=== PATIENT | female | born 1940 | race Caucasian/White ===

== ENCOUNTER 2018-11-01 22:33 | Emergency (ER) | payer OTHER | END 2018-11-02 01:58 | disposition home or self-care (01) | LOC: JER 22:33 | DX: I10 Essential (primary) hypertension (principal); E11.9 Type 2 diabetes mellitus without complications; C50.919 Malignant neoplasm of unspecified site of unspecified female breast; Z86.73 Personal history of transient ischemic attack (TIA), and cerebral infarction without residual deficits ==

== ENCOUNTER 2018-11-03 12:21 | Inpatient (IN) | payer OTHER ==
--- NOTE | 2018-11-03 12:41 | PDOC ---
History of Present Illness - General Stated Complaint: Blood Pressure Problem Time Seen by Provider: 11/03/18 12:28 History Source: Patient Exam Limitations: No Limitations - History of Present Illness Initial Comments: 11/03/18 12:36 78YOF with h/o HTN (valsartan bid and carvedilol bid and states adherent with all medications), TIA (on atorvastatin), NIDDM (on Januvia), and prior left breast cancer (on tamoxifen) who was BIBEMS as coordinated by Dr. Gordon's office where she was reportedly being seen for chest heaviness and SOB in the setting of BP 210/110 in their office. The patient states her only symptom at this time is mild lightheadedness and tiredness, and she believes this is because she has not eaten anything today. Her PCP is Dr. Gordon. On conversation with Dr. Gordon, he states that the patient was complaining of chest pain and SOB, and she took an extra pill of carvedilol and valsartan in the office because of the high blood pressure measured in the office. Per his request the patient needs to be admitted to Dr. Velázquez/Jonny's service. The patient denies VENCES, numbness, tingling, weakness focally, vision change, chest pain, SOB, abdominal pain, back pain, vertigo, or any other symptoms. Past History - Past Medical History Allergies/Adverse Reactions: Allergies Allergy/AdvReac Type Severity Reaction Status Date / Time No Known Allergies Allergy Verified 11/03/18 12:38 Home Medications: Ambulatory Orders Atorvastatin Ca [Lipitor] 10 mg PO HS tablet 12/04/15 Sitagliptin Phosphate [Januvia -] 25 mg PO DAILY@0700 tab 12/04/15 Amlodipine Besylate [Norvasc -] 10 mg PO DAILY #30 tablet 12/09/15 Carvedilol [Coreg -] 25 mg PO BID #60 tablet 12/09/15 Valsartan [Diovan] 160 mg PO BID #60 tablet 12/09/15 Oxycodone HCl/Acetaminophen [Percocet 5-325 mg Tablet] 1 - 2 tab PO Q6H PRN #30 tab MDD 6 01/07/16 Anemia: No Asthma: No Cancer: Yes (Left Breast) Cardiac Disorders: No CVA: Yes (TIA) COPD: No CHF: No Dementia: No Diabetes: Yes (Diet controlled-TAKES JANUVIA PRN) GI Disorders: No Disorders: No HTN: Yes Hypercholesterolemia: No Kidney Stones: Yes Liver Disease: No Seizures: No Thyroid Disease: No - Surgical History Abdominal Surgery: No Appendectomy: No Cardiac Surgery: Yes Cholecystectomy: No Lung Surgery: No Neurologic Surgery: No Orthopedic Surgery: No - Suicide/Smoking/Psychosocial Hx Smoking Status: Yes Smoking History: Unknown if ever smoked Have you smoked in the past 12 months: Yes Number of Cigarettes Smoked Daily: 1 'Breaking Loose' booklet given: 12/06/15 Hx Alcohol Use: No Drug/Substance Use Hx: No Substance Use Type: None Hx Substance Use Treatment: No Cardiac Specific PMH - Complaint Specific PMHX Pacemaker: No Review of Systems - Review of Systems Able to Perform ROS?: Yes Comments:: 11/03/18 12:58 GEN: tiredness, generalized weakness, no fever, chills, malaise, or weight change HEENT: no ear pain, sore throat, vision change, or eye pain CV: lightheadedness, no chest pain, palpitations, syncope, or edema RESP: no cough, wheezing, or SOB GI: no abdominal pain, nausea, vomiting, diarrhea, constipation, or white/black/ bloody stool : no dysuria, hematuria, incontinence, retention, bleeding, or discharge MSK: no neck/back pain, muscle weakness/pain, or joint swelling/pain NEURO: no headache, seizure, vertigo, numbness, tingling, or focal weakness PSYCH: no substance use, no behavior change SKIN: no jaundice, no rash ROS otherwise negative except as noted in HPI *Physical Exam - Vital Signs Last Vital Signs Temp Pulse Resp BP Pulse Ox 97.8 F 68 18 172/85 H 96 11/04/18 06:00 11/04/18 14:00 11/04/18 14:00 11/04/18 14:00 11/03/18 21:00 11/03/18 12:59 Initial Vital Signs Temp Pulse Resp BP Pulse Ox 97.3 F L 78 16 158/55 L 100 11/03/18 12:24 11/03/18 12:24 11/03/18 12:24 11/03/18 12:24 11/03/18 12:24 - Physical Exam Comments: 11/03/18 12:59 GENERAL: nontoxic, well-appearing elderly female who is pleasant and smiling and in no distress, speaking full sentences in Spanish, grandson and at bedside translate for her, A/Ox4, answers questions appropriately HEENT: PERRLA, EOMI, moist mucous membranes NECK/BACK: no midline ttp, no spinal stepoff or deformity, no hematoma, full ROM , neck supple CARDIOVASCULAR: regular rate/rhythm, normal S1S2, no MGR, strong peripheral pulses, capillary refill <2 seconds, extremities wwp, no edema LUNGS/RESPIRATORY: no respiratory distress, CTAB GI/ABDOMEN: symmetric [id number], normoactive BS, soft, no ttp, no midline pulsatile masses : no CVA tenderness EXTREMITIES: no muscle atrophy, no acute deformity SKIN: warm and dry, no pallor, no jaundice, no rash, no bruising, no skin breakdown, no cuts, no lesions NEUROLOGICAL: GCS 15, CN II-XII grossly intact, 5/5 strength proximally and distally, no facial droop Heart Score/ECG Review - History History: Moderately suspicious - Risk Factors Risk Factors Heart Score: Yes Hx Hypercholesterolemia, Yes Hx Hypertension, Yes Hx Diabetes Based on the list above the patient has:: >/=3 risk factors or Hx atherosclerotic disease - Troponin Troponin: </= normal limit #1 11/03/18 12:29 Sinus rhythm, PVC once every 2 beats, ventricular rate 68, normal axis and intervals, isolated TWI in III, no additional ischemic ST-T changes ED Treatment Course - LABORATORY CBC & Chemistry Diagram: 11/04/18 05:55 11/04/18 05:55 - ADDITIONAL ORDERS Additional order review: 11/03/18 11/03/18 12:56 12:53 RBC 4.47 MCV 86.6 MCHC 34.5 RDW 13.6 MPV 8.4 Neutrophils % 64.7 Lymphocytes % 25.8 Monocytes % 7.5 Eosinophils % 1.7 Basophils % 0.3 POC Glucometer 160 - RADIOLOGY Radiology Studies Ordered: Category Date Time Status CHEST X-RAY PORTABLE* [RAD] Stat Radiology 11/03/18 12:42 Completed - Medications Given in the ED: ED Medications Discontinued Medications Generic Name Dose Route Start Last Admin Trade Name Freq PRN Reason Stop Dose Admin Amlodipine Besylate 10 mg 11/04/18 10:00 11/04/18 10:48 Norvasc - PO 10 mg DAILY [place] Administration Regadenoson 0.4 mg 11/04/18 13:15 11/04/18 15:08 Lexiscan IVPUSH 11/04/18 13:16 0.4 mg ONCE ONE Administration Medical Decision Making - Medical Decision Making 11/03/18 13:21 78YOF with h/o HTN p/w elevated BP in PCP's office accompanied by chest pain/ SOB. Initial Vital Signs Temp Pulse Resp BP Pulse Ox 97.3 F L 78 16 158/55 L 100 11/03/18 12:24 11/03/18 12:24 11/03/18 12:24 11/03/18 12:24 11/03/18 12:24 Exam: As noted in Physical Exam section. DDX IBNLT: HAPE, CHF exacerbation, ACS, or simple uncomplicated HTN are most likely; less likely pericarditis, aortic dissection, AAA, PTX, PE, esophageal tear, esophagitis (e.g. pill, infectious), esophageal stricture, esophageal FB, gastritis, PUD, pancreatitis, cholecystitis, cholangitis, colitis, bowel perforation, PNA/bronchitis, pleurisy, pleuritis, MVP, pulmonary HTN, musculoskeletal, panic/anxiety, etc. W/U ordered: CBCD CMP Mg Phos Lipase Troponin CK CKMB Coags T&S Blood gas UA UCx EKG CXR. TX ordered: EKG: Reviewed; results as noted in ECG Review section. CXR: Nothing acute Vital Signs Temperature 97.3 F L 11/03/18 12:24 Pulse Rate 62 11/03/18 12:45 Respiratory Rate 17 11/03/18 12:45 Blood Pressure 144/76 11/03/18 12:45 O2 Sat by Pulse Oximetry (%) 97 11/03/18 13:07 Laboratory Tests 11/03/18 11/03/18 11/03/18 12:53 12:56 12:56 WBC 9.3 RBC 4.47 Hgb 13.3 Hct 38.7 MCV 86.6 MCH 29.9 MCHC 34.5 RDW 13.6 Plt Count 254 MPV 8.4 Absolute Neuts (auto) 6.0 Neutrophils % 64.7 Lymphocytes % 25.8 Monocytes % 7.5 Eosinophils % 1.7 Basophils % 0.3 Nucleated RBC % 0 Sodium 134 L Potassium 4.5 Chloride 101 Carbon Dioxide 26 Anion Gap 8 BUN 11.6 Creatinine 0.7 Est GFR (CKD-EPI)AfAm 94.84 Est GFR (CKD-EPI)NonAf 81.83 POC Glucometer 160 Random Glucose 161 H Calcium 9.1 Magnesium 1.8 Total Bilirubin 0.3 AST 14 L ALT 19 Alkaline Phosphatase 48 Creatine Kinase 39 Troponin I 0.02 B-Natriuretic Peptide 729.4 H Total Protein 6.8 Albumin 3.3 L Patient is asymptomatic; exam benign. 11/03/18 14:45 The Pt is unsafe for discharge at this time. They require further hospital observation, workup, and treatment. I have spoken with NABEEL Nunez on with Dr. Velázquez/Jonny group; patient admitted to Tele. Decision to Admit order placed. *DC/Admit/Observation/Transfer Diagnosis at time of Disposition: Shortness of breath Hypertension Qualifiers: Hypertension type: unspecified Qualified Code(s): I10 - Essential (primary) hypertension Chest pain Qualifiers: Chest pain type: unspecified Qualified Code(s): R07.9 - Chest pain, unspecified - Discharge Dispostion Condition at time of disposition: Guarded Decision to Admit order: Yes - Referrals - Patient Instructions - Post Discharge Activity Repeat PE for Septic Shock - Vital Signs Vital Signs: Vital Signs Temperature 97.8 F 11/04/18 06:00 Pulse Rate 68 11/04/18 14:00 Respiratory Rate 18 11/04/18 14:00 Blood Pressure 172/85 H 11/04/18 14:00 O2 Sat by Pulse Oximetry (%) 96 11/03/18 21:00 I have reviewed the most recent vital signs: Yes - PE CV for Spetic Shock: Regular Rhythm Lungs: Lungs Clear Vascular: Left Radial: 2+, Right Radial: 2+, Left Doralis Pedis: 2+, Right Dorsalis Pedis: 2+ Capillary Refill: <3 seconds Skin exam: Normal Color - Impression Impression: No fluid bolus indicated, pt not hypovolemic
[2018-11-03 13:32] LABS: BASO % 0.3 % (0-2.0); EOS % 1.7 % (0-4.5); HEMATOCRIT 38.7 % (32.4-45.2); HEMOGLOBIN 13.3 GM/dL (10.7-15.3); LYMPH % 25.8 % (8-40); MCH 29.9 pg (25.7-33.7); MCHC 34.5 g/dl (32.0-36.0); MEAN CELL VOLUME 86.6 fl (80-96); MEAN PLT VOLUME 8.4 fl (7.5-11.1); MONO % 7.5 % (3.8-10.2); NEUT % 64.7 % (42.8-82.8); PLATELET COUNT 254 K/MM3 (134-434); RBC 4.47 M/mm3 (3.60-5.2); RDW 13.6 % (11.6-15.6); WHITE BLOOD COUNT 9.3 K/mm3 (4.0-10.0)
[2018-11-03 13:54] LABS: ALBUMIN 3.3 g/dl (3.4-5.0); BILIRUBIN,TOTAL 0.3 mg/dL (0.2-1); BLOOD UREA NITROGEN 11.6 mg/dL (7-18); CALCIUM 9.1 mg/dL (8.5-10.1); CREATININE 0.7 mg/dL (0.55-1.3); MAGNESIUM 1.8 mg/dL (1.8-2.4); N-TERMINAL BNP 729.4 pg/ml (5-450); POTASSIUM 4.5 mmol/L (3.5-5.1); TOT PROT 6.8 g/dl (6.4-8.2)
--- NOTE | 2018-11-03 14:20 | PDOC ---
Documentation entered by Ferny Garza SCRIBE, acting as scribe for Karl Whaley MD. Karl Whaley MD: This documentation has been prepared by the Kayla braun Elijah, SCRIBE, under my direction and personally reviewed by me in its entirety. I confirm that the documentation accurately reflects all work, treatment, procedures, and medical decision making performed by me. Attending Attestation - Resident Resident Name: MacielEllen - ED Attending Attestation I have performed the following: I have examined & evaluated the patient, The case was reviewed & discussed with the resident, I agree w/resident's findings & plan - HPI HPI: 11/03/18 13:48 Patient is an 78 year old female with a significant past medical history of HTN (valsartan bid), TIA (on atorvastatin), NIDDM (on Januvia), and prior left breast cancer who presents to the ED for evauiation of htn The patient reports waking up this morning taking her BP medication (Diovan and Carvadilol) and went to see her PCP as a follow up of having visited the ED for elevated BP. As per conversation with Dr. Gordon, the patient had presented the complaints of Chest Pain and SOB and was found to have an elevated BP of 210/110 for which she was given an extra carvedilol and valsartan. Dr. Gordon had the patient brought in for the elevated BP and chest pain. . At this time the patient only reports mild lightheadedness and tiredness. Denies Abdominal Pain, fever, chills , nausea, vomiting, diaphoresis. Allergies: NKA PCP: Dr. Gordon Cardiologists: Dr. Ferrell. - Physicial Exam PE: 11/03/18 13:49 GENERAL: The patient is awake, alert, Nontoxic - in no acute distress. HEAD: Normocephalic, atraumatic. EYES: extraocular movements intact, sclera anicteric, conjunctiva clear. ENT: Normal voice, Moist mucous membranes. NECK: Normal range of motion, supple without lymphadenopathy, JVD, or masses. LUNGS: Breath sounds equal, clear to auscultation bilaterally. No wheezes, no crackles, no rales. HEART: Regular rate and rhythm, normal S1 and S2 without murmur, rub or gallop. ABDOMEN: Soft, nontender, No guarding, no rebound. No masses. EXTREMITIES: Normal range of motion, NEUROLOGICAL: No facial asymmetry, Normal speech. PSYCH: Normal mood, normal affect. SKIN: Warm, Dry, normal turgor, no rashes or lesions noted. - Medical Decision Making 11/03/18 13:06 78y F hx of htn, breast ca on tamoxifen, took her BP meds this morning, went to her PMDs office and noted to be eleveted and was noted to have cp and sob- there , took an extra dose of diovan and carvadilol and sent pt to the ED. Pt denies any cp, sob currently . pt notes some malaise. exam nonfocal bp stable here will admit pt for further management of hypertension and chest pain Heart Score/ECG Review - ECG Impressions Comment:: 11/03/18 13:58 Twelve-lead EKG was performed and reviewed by me. There is normal sinus rhythm with a rate of 68 pvcs present
[2018-11-03] MEDS ORDERED: oxyCODONE HCL 5 MG TABLET PO PRN (15:30)
[2018-11-03] MEDS ORDERED: ACETAMINOPHEN 325 MG TABLET (FP) PO PRN (15:30)
--- NOTE | 2018-11-03 15:30 | HP ---
Admitting History and Physical - Primary Care Physician PCP: Edison Gordon - Admission Chief Complaint: HTN, Chest pain History of Present Illness: Patient is a 78 y/o female with past medical history of HTN, TIA, NIDDM, L breast CA. Patient was in PCP office this morning when she was noted to have BP 210/110 in office accomapnied with chest pain and SOB. She took her morning dose of Valsartan and Carvedilol. Upon arrival to ER BP 150s systolic. Since ED arrival states she has lest chest pressure and SOB. 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, pending lumpectomy and radiation)) Endocrine: Yes: Diabetes Mellitus - Past Surgical History Past Surgical History: Yes: Carotid Endarterectomy (4-5 yrs ago) - Smoking History Smoking history: Unknown if ever smoked Have you smoked in the past 12 months: Yes Aproximately how many cigarettes per day: 1 - Alcohol/Substance Use Hx Alcohol Use: No History of Substance Use: reports: None - Social History Usual Living Arrangement: Yes: Alone ADL: Independent History of Recent Travel: No Home Medications - Allergies Allergies/Adverse Reactions: Allergies Allergy/AdvReac Type Severity Reaction Status Date / Time No Known Allergies Allergy Verified 11/03/18 12:38 - Home Medications Home Medications: Ambulatory Orders Atorvastatin Ca [Lipitor] 10 mg PO HS tablet 12/04/15 Sitagliptin Phosphate [Januvia -] 25 mg PO DAILY@0700 tab 12/04/15 Amlodipine Besylate [Norvasc -] 10 mg PO DAILY #30 tablet 12/09/15 Carvedilol [Coreg -] 25 mg PO BID #60 tablet 12/09/15 Valsartan [Diovan] 160 mg PO BID #60 tablet 12/09/15 Oxycodone HCl/Acetaminophen [Percocet 5-325 mg Tablet] 1 - 2 tab PO Q6H PRN #30 tab MDD 6 01/07/16 Family Disease History - Family Disease History Family Disease History: CA: Son (testicular cancer) Review of Systems - Review of Systems Constitutional: reports: Weakness Eyes: reports: No Symptoms HENT: reports: No Symptoms Neck: reports: No Symptoms Cardiovascular: reports: Chest Pain, Shortness of Breath Respiratory: reports: SOB Gastrointestinal: reports: No Symptoms Genitourinary: reports: No Symptoms Breasts: reports: No Symptoms Reported Musculoskeletal: reports: No Symptoms Integumentary: reports: No Symptoms Neurological: reports: No Symptoms Endocrine: reports: No Symptoms Hematology/Lymphatic: reports: No Symptoms Psychiatric: reports: No Symptoms Physical Examination Vital Signs: Vital Signs Temperature 97.3 F L 11/03/18 12:24 Pulse Rate 62 11/03/18 12:45 Respiratory Rate 17 11/03/18 12:45 Blood Pressure 144/76 11/03/18 12:45 O2 Sat by Pulse Oximetry (%) 97 11/03/18 13:07 Constitutional: Yes: No Distress, Calm Eyes: Yes: Conjunctiva Clear HENT: Yes: Atraumatic Cardiovascular: Yes: Regular Rate and Rhythm Respiratory: Yes: Regular, CTA Bilaterally Gastrointestinal: Yes: Normal Bowel Sounds, Soft Musculoskeletal: Yes: Muscle Weakness Extremities: Yes: WNL Edema: No Neurological: Yes: Alert, Oriented Psychiatric: Yes: Alert, Oriented Labs: CBC, BMP 11/03/18 12:56 11/03/18 12:56 Problem List - Problems (1) Chest pain Assessment/Plan: -cardiology consult -tele monitoring -troponin neg x 1 -as per cardiology recommendation if chest pain or SOB during night consider possible stress test in AM Code(s): R07.9 - CHEST PAIN, UNSPECIFIED Qualifiers: Chest pain type: unspecified Qualified Code(s): R07.9 - Chest pain, unspecified (2) Hypertension Assessment/Plan: -Carvedilol, Valsartan, Amlodipin -Low Na diet Code(s): I10 - ESSENTIAL (PRIMARY) HYPERTENSION Qualifiers: Hypertension type: unspecified Qualified Code(s): I10 - Essential (primary ) hypertension (3) Shortness of breath Assessment/Plan: -O2 via NC -keep SpO2 >90% Code(s): R06.02 - SHORTNESS OF BREATH (4) DM2 (diabetes mellitus, type 2) Assessment/Plan: -BGM ACHS -Sitagliptan -HgA1c Code(s): E11.9 - TYPE 2 DIABETES MELLITUS WITHOUT COMPLICATIONS Qualifiers: Diabetes mellitus complication status: with hypoglycemia (5) TIA (transient ischemic attack) Assessment/Plan: -Atorvastatin Code(s): G45.9 - TRANSIENT CEREBRAL ISCHEMIC ATTACK, UNSPECIFIED
--- NOTE | 2018-11-03 16:02 | CON.CARD ---
Consult Consult Specialty:: Cardiology Referred by:: Dr. Velázquez Reason for Consultation:: Chest pain, HTN - History of Present Illness Chief Complaint: Chest pain, sob History of Present Illness: 75 year old woman with a pmh HTN, HLD, DMII, TIA, ALVA s/p L CEA, L breast CA, prior admissions with uncontrolled HTN, [facility], went to her PMD Dr. Florian office yesterday and found to have uncontrolled HTN. She states when she heard her BP was high she became anxious and then felt chest pressure. Since coming to the ER she has not had any further chest pressure. She denies chest pain or pressure prior to that. Currently feels well, no complaints. - History Source History Provided By: Patient, Family Member Limitations to Obtaining History: Language Barrier - Past Medical History Cardio/Vascular: Yes: HTN, Hyperlipdemia, Other (carrottid stenosis) Endocrine: Yes: Diabetes Mellitus - Past Surgical History Past Surgical History: Yes: Carotid Endarterectomy (4-5 yrs ago) - Alcohol/Substance Use Hx Alcohol Use: No History of Substance Use: reports: None - Smoking History Smoking history: Unknown if ever smoked Have you smoked in the past 12 months: Yes Aproximately how many cigarettes per day: 1 - Social History Usual Living Arrangement: With Spouse (and son) ADL: Independent History of Recent Travel: No Home Medications - Allergies Allergies/Adverse Reactions: Allergies Allergy/AdvReac Type Severity Reaction Status Date / Time No Known Allergies Allergy Verified 11/03/18 12:38 - Home Medications Home Medications: Ambulatory Orders Atorvastatin Ca [Lipitor] 10 mg PO HS tablet 12/04/15 Sitagliptin Phosphate [Januvia -] 25 mg PO DAILY@0700 tab 12/04/15 Amlodipine Besylate [Norvasc -] 10 mg PO DAILY #30 tablet 12/09/15 Carvedilol [Coreg -] 25 mg PO BID #60 tablet 12/09/15 Valsartan [Diovan] 160 mg PO BID #60 tablet 12/09/15 Oxycodone HCl/Acetaminophen [Percocet 5-325 mg Tablet] 1 - 2 tab PO Q6H PRN #30 tab MDD 6 01/07/16 Family Disease History - Family Disease History Family Disease History: CA: Son (testicular cancer) Review of Systems - Review of Systems Constitutional: denies: No Symptoms, Chills, Diaphoresis, Fever, Lethargy, Loss of Appetite, Malaise, Night Sweats, Unintentional Wgt. Loss, Weakness, Other Eyes: denies: No Symptoms, Blind Spots, Blurred Vision, Double Vision, Eye Pain , Floaters, Photophobia, Recent Change in Vision, Other HENT: denies: No Symptoms, Difficult Swallowing, Ear Discharge, Ear Pain, Epistaxis, Gingival Bleeding, Hearing Loss, Mouth Swelling, Nasal Congestion, Ocular Prosthesis, Throat Pain, Toothache, Ringing in Ears, Other Neck: denies: No Symptoms, Decreased ROM, Lumps, Pain on Movement, Stiffness, Swollen Glands, Tenderness, Other Cardiovascular: reports: Chest Pain, Shortness of Breath. denies: No Symptoms, Edema, Palpitations, Other Respiratory: reports: SOB. denies: No Symptoms, Cough, Exercise Intolerance, Hemoptysis, Orthopnea, PND, Snoring, SOB on Exertion, Wheezing, Other Gastrointestinal: denies: No Symptoms, Abdominal Pain, Bloating, Constipation, Diarrhea, Dysphagia, Indigestion, Melena, Nausea, Rectal Bleeding, Vomiting, Vomiting Blood, Other Genitourinary: denies: No Symptoms, Burning, Discharge, Dysuria, Flank Pain, Frequency, Hematuria, Incontinence, Lesions, Menses, Pain, Testicular Mass, Testicular Pain, Testicular Swelling, Urgency, Vaginal Bleeding, Other Breasts: denies: No Symptoms Reported, See HPI, Breast Implants, Discharge from Nipple, Lumps, Pain, Skin Changes, Other Musculoskeletal: denies: No Symptoms, Back Pain, Crepitus, Decreased ROM, Extremity Pain, Joint Pain, Joint Swelling, Muscle Pain, Muscle Cramps, Muscle Weakness, Other Integumentary: denies: No Symptoms, Blister, Bruising, Change in Color, Eczema, Erythema, Incision, Lesions, Lump, Pallor, Pruritis, Rash, Wound, Other Neurological: denies: No Symptoms, Change in LOC, Change in Speech, Confusion, Dizziness, Headache, Incoordination, Numbness, Parasthesia, Pre-Existing Deficit , Seizure, Syncope, Tremors, Unsteady Gait, Weakness, Other Endocrine: denies: No Symptoms, Excessive Sweating, Flushing, Increased Hunger, Increased Thirst, Intolerance to Cold, Intolerance to Heat, Unexplained Weight Gain, Unexplained Weight Loss, Other Hematology/Lymphatic: denies: No Symptoms, Easily Bruised, Excessive Bleeding, Swollen Glands, Other Vital Signs: Vital Signs Temperature 97.3 F L 11/03/18 12:24 Pulse Rate 62 11/03/18 12:45 Respiratory Rate 17 11/03/18 12:45 Blood Pressure 144/76 11/03/18 12:45 O2 Sat by Pulse Oximetry (%) 97 11/03/18 13:07 Constitutional: Yes: No Distress, Calm Eyes: Yes: Conjunctiva Clear, EOM Intact, PERRL HENT: Yes: Atraumatic, Normocephalic Neck: Yes: Supple, Trachea Midline Respiratory: Yes: Regular, CTA Bilaterally. No: Rales, Rhonchi, Wheezes Gastrointestinal: Yes: Normal Bowel Sounds, Soft. No: Distention, Tenderness Cardiovascular: Yes: Regular Rate and Rhythm. No: Bradycardia, Tachycardia, Pulse Irregular, Gallop, Rub, Varicosities JVD: No Carotid Bruit: No PMI: Non-Displaced Heart Sounds: Yes: S1, S2. No: Split S2, S3, S4, Clicks, Gallop, Rub, Bruit Murmur: No: Systolic Murmur, Diastolic Murmur Extremities: Yes: WNL Edema: No Peripheral Pulses WNL: Yes Peripheral Pulses: 2+ Left Doralis Pedis, 2+ Right Dorsalis Pedis Neurological: Yes: Alert, Oriented Psychiatric: Yes: Alert, Oriented - Other Data Labs, Other Data: CBC, BMP 11/03/18 12:56 11/03/18 12:56 Troponin, BNP 11/03/18 12:56 Troponin I 0.02 B-Natriuretic Peptide 729.4 H Troponin, BNP 11/03/18 12:56 Troponin I 0.02 B-Natriuretic Peptide 729.4 H not available, reported as no sig changes Echo: Report Reviewed Imaging - Results Chest X-ray: Report Reviewed, Image Reviewed EKG: Report Reviewed, Image Reviewed Other: Report Reviewed, Image Reviewed Assessment/Plan 75 year old woman with a pmh HTN, HLD, DMII, TIA, ALVA s/p L CEA, L breast CA, prior admissions with uncontrolled HTN, [facility]SE[facility], went to her PMD Dr. Florian office yesterday and found to have uncontrolled HTN. She states when she heard her BP was high she became anxious and then felt chest pressure. Since coming to the ER she has not had any further chest pressure. She denies chest pain or pressure prior to that. Currently feels well, no complaints. HTN-uncontrolled on admission -now adequately controlled -cont current medical regimen -if becomes uncontrolled again can change amlodipine to nifedipine and can add HCTZ Chest pain-transient and atypical -unlikely ACS -symptoms resolved -no sig ecg changes reported -trop x 1 wnl -would repeat full set of cardiac enzymes -nuclear stress test 2016 reported no ischemia -echo 2016 normal LVEF mild valvular abnl -can hold off on additional ischemic work up at this time. if recurrent chest pain or sob tonight can order a nuclear stress test for tomorrow otherwise can be deferred to re-evaluation in outpatient setting.
[2018-11-03 17:31] VITALS: BMI 31.8
[2018-11-03] MEDS: VALSARTAN 160 MG TABLET (UD) PO SCH (21:13)
[2018-11-03] MEDS: CARVEDILOL 25 MG TABLET (FP) PO SCH (21:13)
[2018-11-03] MEDS: ATORVASTATIN CA 10 MG TABLET (FP) PO SCH (21:13)
[2018-11-03] MEDS: HEPARIN NA (PORCINE) 5,000 UNITS/ML 1ML VIAL SQ SCH (21:13)
--- NOTE | 2018-11-03 22:58 | CONSULT ---
Consult Consult Specialty:: ENDOCRINE Referred by:: MAGGIE ALBERTS Reason for Consultation:: HYPERTENSION UNCONTROLLED/DM2 - History of Present Illness Chief Complaint: CHEST HEAVINESS,AND HIGH BLOOD PRESSURE SINCE 11/02 History of Present Illness: 78 Y FEMALE,PMH HTN,DM2,BREAST NEOPLASM,SEEN 11/02 IN ED,FOR UNCONTROLLED HTN, SENT HOME AND CONTINUED WITH ELEVATED BP AT HOME DESPITE TAKING HER MEDS,SEEN IN OFFICE FOUND TO HAVE BP 200/110 WAS COMPLAINING OF CHEST HEAVINESS,AND WEAK, WAS NOT AWARE OF HER BP TILL RECHECKED SEVERAL TIMES FOUND TO REMAIN IN 180S SYSTOLIC DESPITE TAKING VALSARTAN 160MG AND COREG 12.5MG ECG WAS NOTED IRREGULAR .ARIANA TO ED BY EMS FOR EVALUATION UNCONTROLLED HTN,WITH COMORBID RISK FACTORS. - Past Medical History Cardio/Vascular: Yes: HTN, Hyperlipdemia, Other (carrottid stenosis) ...: No Endocrine: Yes: Diabetes Mellitus - Past Surgical History Past Surgical History: Yes: Carotid Endarterectomy (4-5 yrs ago) - Alcohol/Substance Use Hx Alcohol Use: No History of Substance Use: reports: None - Smoking History Smoking history: Unknown if ever smoked Have you smoked in the past 12 months: Yes Aproximately how many cigarettes per day: 1 - Social History Usual Living Arrangement: With Spouse (and son) ADL: Independent History of Recent Travel: No Home Medications - Allergies Allergies/Adverse Reactions: Allergies Allergy/AdvReac Type Severity Reaction Status Date / Time No Known Allergies Allergy Verified 11/03/18 12:38 - Home Medications Home Medications: Ambulatory Orders Atorvastatin Ca [Lipitor] 10 mg PO HS tablet 12/04/15 Sitagliptin Phosphate [Januvia -] 25 mg PO DAILY@0700 tab 12/04/15 Amlodipine Besylate [Norvasc -] 10 mg PO DAILY #30 tablet 12/09/15 Carvedilol [Coreg -] 25 mg PO BID #60 tablet 12/09/15 Valsartan [Diovan] 160 mg PO BID #60 tablet 12/09/15 Oxycodone HCl/Acetaminophen [Percocet 5-325 mg Tablet] 1 - 2 tab PO Q6H PRN #30 tab MDD 6 01/07/16 Family Disease History - Family Disease History Family Disease History: CA: Son (testicular cancer) Review of Systems - Review of Systems Constitutional: reports: Weakness Eyes: reports: No Symptoms HENT: reports: No Symptoms Neck: reports: No Symptoms Cardiovascular: reports: No Symptoms Respiratory: reports: SOB on Exertion Gastrointestinal: reports: Constipation Genitourinary: reports: No Symptoms Breasts: reports: No Symptoms Reported Musculoskeletal: reports: No Symptoms Endocrine: reports: No Symptoms Physical Exam Vital Signs: Vital Signs Temperature 98 F 11/03/18 17:23 Pulse Rate 69 11/03/18 17:23 Respiratory Rate 18 11/03/18 17:23 Blood Pressure 168/94 11/03/18 17:23 O2 Sat by Pulse Oximetry (%) 97 11/03/18 17:23 Constitutional: Yes: Calm Eyes: Yes: EOM Intact HENT: Yes: Normocephalic Neck: Yes: Trachea Midline Cardiovascular: Yes: Regular Rate and Rhythm Respiratory: Yes: CTA Bilaterally Gastrointestinal: Yes: Normal Bowel Sounds ...Rectal Exam: Yes: Deferred Renal/: Yes: WNL Musculoskeletal: Yes: WNL Extremities: Yes: WNL Edema: No Peripheral Pulses WNL: Yes Neurological: Yes: Alert, Oriented Labs: CBC, BMP 11/03/18 12:56 11/03/18 12:56 Assessment/Plan Current Active Problems UNCONTROLLED HTN DM2 HLD BREAST CANCER Chest pain (Acute) Hypertension (Acute) Shortness of breath (Acute) Abnormal Lab Results 11/03/18 12:56 Sodium 134 L Random Glucose 161 H AST 14 L B-Natriuretic Peptide 729.4 H Albumin 3.3 L Laboratory Results - last 24 hr 11/03/18 11/03/18 11/03/18 12:53 12:56 12:56 WBC 9.3 RBC 4.47 Hgb 13.3 Hct 38.7 MCV 86.6 MCH 29.9 MCHC 34.5 RDW 13.6 Plt Count 254 MPV 8.4 Absolute Neuts (auto) 6.0 Neutrophils % 64.7 Lymphocytes % 25.8 Monocytes % 7.5 Eosinophils % 1.7 Basophils % 0.3 Nucleated RBC % 0 Sodium 134 L Potassium 4.5 Chloride 101 Carbon Dioxide 26 Anion Gap 8 BUN 11.6 Creatinine 0.7 Est GFR (CKD-EPI)AfAm 94.84 Est GFR (CKD-EPI)NonAf 81.83 POC Glucometer 160 Random Glucose 161 H Calcium 9.1 Magnesium 1.8 Total Bilirubin 0.3 AST 14 L ALT 19 Alkaline Phosphatase 48 Creatine Kinase 39 Troponin I 0.02 B-Natriuretic Peptide 729.4 H Total Protein 6.8 Albumin 3.3 L 11/03/18 21:25 WBC RBC Hgb Hct MCV MCH MCHC RDW Plt Count MPV Absolute Neuts (auto) Neutrophils % Lymphocytes % Monocytes % Eosinophils % Basophils % Nucleated RBC % Sodium Potassium Chloride Carbon Dioxide Anion Gap BUN Creatinine Est GFR (CKD-EPI)AfAm Est GFR (CKD-EPI)NonAf POC Glucometer 202 Random Glucose Calcium Magnesium Total Bilirubin AST ALT Alkaline Phosphatase Creatine Kinase Troponin I B-Natriuretic Peptide Total Protein Albumin PLAN: CPK TROPONINS 24 HR VMA AM CORTISOL ECHO CAROTID DOPPLER LIPID PANEL HBA1C TSH FREE T4 NUCLEAR STRESS TEST
[2018-11-04] MEDS: sitaGLIPtin PHOSPHATE 25 MG TABLET (FP) PO SCH (06:41)
[2018-11-04 06:55] LABS: BASO % 0.5 % (0-2.0); EOS % 2.4 % (0-4.5); HEMATOCRIT 37.2 % (32.4-45.2); HEMOGLOBIN 12.7 GM/dL (10.7-15.3); LYMPH % 33.8 % (8-40); MCH 29.7 pg (25.7-33.7); MCHC 34.1 g/dl (32.0-36.0); MEAN PLT VOLUME 8.3 fl (7.5-11.1); MONO % 9.7 % (3.8-10.2); NEUT % 53.6 % (42.8-82.8); RBC 4.27 M/mm3 (3.60-5.2); RDW 13.7 % (11.6-15.6); WHITE BLOOD COUNT 7.7 K/mm3 (4.0-10.0)
[2018-11-04 07:26] LABS: ALBUMIN 3.1 g/dl (3.4-5.0); ALK PHOS 44 U/L (45-117); ANION GAP 5 MMOL/L (8-16); BILIRUBIN,TOTAL 1.2 mg/dL (0.2-1); BLOOD UREA NITROGEN 15.1 mg/dL (7-18); CALCIUM 8.7 mg/dL (8.5-10.1); CHLORIDE 102 mmol/L (98-107); CHOLESTEROL 164 mg/dL (50-200); CO2 28 mmol/L (21-32); CREATININE 0.7 mg/dL (0.55-1.3); GLUCOSE,RANDOM 148 mg/dL (74-106); HDL CHOLESTEROL 63 mg/dL (40-60); MAGNESIUM 1.8 mg/dL (1.8-2.4); N-TERMINAL BNP 868.3 pg/ml (5-450); PHOSPHOROUS 3.4 mg/dL (2.5-4.9); POTASSIUM 4.5 mmol/L (3.5-5.1); SGOT/AST 9 U/L (15-37); SGPT/ALT 20 U/L (13-61); SODIUM 135 mmol/L (136-145); TOT PROT 6.2 g/dl (6.4-8.2); TRIGLYCERIDES 138 mg/dL (0-150)
[2018-11-04 07:45] LABS: PLATELET COUNT 231 K/MM3 (134-434)
[2018-11-04] MEDS ORDERED: amLODIPine BESYLATE 10 MG TABLET (FP) PO SCH (10:00)
[2018-11-04] MEDS: CARVEDILOL 25 MG TABLET (FP) PO SCH ×2 (10:48→23:23)
[2018-11-04] MEDS: HEPARIN NA (PORCINE) 5,000 UNITS/ML 1ML VIAL SQ SCH ×2 (10:49→23:24)
[2018-11-04] MEDS: VALSARTAN 160 MG TABLET (UD) PO SCH ×2 (10:55→23:23)
--- NOTE | 2018-11-04 11:59 | EKG ---
Test Reason : Blood Pressure : / mmHG Vent. Rate : 068 BPM Atrial Rate : 068 BPM P-R Int : 156 ms QRS Dur : 090 ms QT Int : 430 ms P-R-T Axes : 010 -20 007 degrees QTc Int : 457 ms SINUS RHYTHM WITH FREQUENT VPCS VOLTAGE CRITERIA FOR LEFT VENTRICULAR HYPERTROPHY ABNORMAL ECG NO PREVIOUS ECGS AVAILABLE Confirmed by CHINTAN GARNER MD ([id number]) on 11/04/2018 11:58:42 AM Referred By: Confirmed By:CHINTAN GARNER MD
--- NOTE | 2018-11-04 12:04 | PN ---
Progress Note, Physician Chief Complaint: Uncontrolled HTN Chest pain History of Present Illness: NAD in bed at beside Denies any chest pain, SOB, headache, light headedness or dizziness Seen by Cardiology BP still elevated - Current Medication List Current Medications: Active Medications Acetaminophen (Tylenol -) 325 mg PO Q6H PRN PRN Reason: PAIN Amlodipine Besylate (Norvasc -) 10 mg PO DAILY [facility] Last Admin: 11/04/18 10:48 Dose: 10 mg Atorvastatin Calcium (Lipitor -) 10 mg PO HS [facility] Last Admin: 11/03/18 21:13 Dose: 10 mg Carvedilol (Coreg -) 25 mg PO BID [facility] Last Admin: 11/04/18 10:48 Dose: 25 mg Heparin Sodium (Porcine) (Heparin -) 5,000 unit SQ BID [facility] Last Admin: 11/04/18 10:49 Dose: 5,000 unit Oxycodone HCl (Roxicodone -) 5 mg PO Q6H PRN PRN Reason: PAIN LEVEL 1-5 Sitagliptin Phosphate (Januvia -) 25 mg PO DAILY@0700 [facility] Last Admin: 11/04/18 06:41 Dose: Not Given Valsartan (Diovan -) 160 mg PO BID [facility] Last Admin: 11/04/18 10:55 Dose: 160 mg - Objective Vital Signs: Vital Signs Temperature 97.8 F 11/04/18 06:00 Pulse Rate 62 11/04/18 10:00 Respiratory Rate 18 11/04/18 10:00 Blood Pressure 204/100 H 11/04/18 10:00 O2 Sat by Pulse Oximetry (%) 96 11/03/18 21:00 Constitutional: Yes: Well Nourished, No Distress, Calm, Obese Cardiovascular: Yes: Regular Rate and Rhythm Respiratory: Yes: Regular Gastrointestinal: Yes: Normal Bowel Sounds, Soft, Abdomen, Obese Musculoskeletal: Yes: WNL Extremities: Yes: WNL Edema: No Peripheral Pulses WNL: Yes Neurological: Yes: Alert, Oriented Psychiatric: Yes: Alert, Oriented Labs: CBC, BMP 11/04/18 05:55 11/04/18 05:55 Assessment/Plan (1) Chest pain Assessment/Plan: -cardiology consult -tele monitoring -troponin neg x 2 -Echo+ carotid US -Stress test Code(s): R07.9 - CHEST PAIN, UNSPECIFIED Qualifiers: Chest pain type: unspecified Qualified Code(s): R07.9 - Chest pain, unspecified (2) Hypertension Assessment/Plan: -Carvedilol, Valsartan, Amlodipine -D/C amlodipine -start Nifedipine 30 mg po BID -Add HCTZ 25 mg po daily -Low Na diet Code(s): I10 - ESSENTIAL (PRIMARY) HYPERTENSION Qualifiers: Hypertension type: unspecified Qualified Code(s): I10 - Essential (primary ) hypertension (3) Shortness of breath Assessment/Plan: -O2 via NC -keep SpO2 >90% -CXR negative Code(s): R06.02 - SHORTNESS OF BREATH (4) DM2 (diabetes mellitus, type 2) Assessment/Plan: -BGM ACHS -Sitagliptan -HgA1c 6.8 -Diabetic low sodium diet Code(s): E11.9 - TYPE 2 DIABETES MELLITUS WITHOUT COMPLICATIONS Qualifiers: Diabetes mellitus complication status: with hypoglycemia
[2018-11-04] MEDS ORDERED: ALBUTEROL SO4 0.083% IH SOL 2.5 MG/3 ML VIAL.NEB. NEB PRN (12:07)
[2018-11-04] MEDS ORDERED: REGADENOSON 0.4 MG/5 ML PRE-FILLED SYRINGE IVPUSH ONE ×2 (13:15→14:30)
--- NOTE | 2018-11-04 14:57 | ECHO ---
Name: MARIZA SCHWARZ Exam:Adult Echocardiogram Study Date: 11/04/2018 01:58 PM Age: 78 yrs Reason For Study: Arrhythmia Height: 61 in Weight: 167 lb BSA: 1.7 m2 MMode/2D Measurements & Calculations IVSd: 1.2 cm Ao root diam: 2.5 cm LVIDd: 4.4 cm LA dimension: 3.6 cm LVIDs: 2.9 cm LVPWd: 1.1 cm EDV(Teich): 88.1 ml LVOT diam: 1.9 cm ESV(Teich): 33.5 ml Doppler Measurements & Calculations MV E max caridad: 44.4 cm/sec TR max caridad: 267.4 cm/sec MV A max caridad: 98.2 cm/sec TR max P.6 mmHg MV E/A: 0.45 Med Peak E' Caridad: 11.1 cm/sec Med E/e': 4.0 Lat Peak E' Caridad: 6.4 cm/sec Lat E/e': 7.0 Left Ventricle Moderate basal septal hypertrophy. Ejection Fraction = 60-65%. The transmitral spectral Doppler flow pattern is suggestive of impaired LV relaxation. Right Ventricle The right ventricle is grossly normal size. The right ventricular systolic function is grossly normal . Atria Normal left and right atrial size and function. Mitral Valve The mitral valve is normal in structure and function. There is no mitral valve stenosis. There is tra ce to mild mitral regurgitation. Tricuspid Valve The tricuspid valve is normal in structure and function. There is mild tricuspid regurgitation. Right ventricular systolic pressure is normal. Aortic Valve There is moderate aortic sclerosis.;. No hemodynamically significant valvular aortic stenosis. No aor tic regurgitation is present. Pulmonic Valve The pulmonic valve is not well seen, but is grossly normal. There is no pulmonic valvular stenosis. T race pulmonic valvular regurgitation. Great Vessels The aortic root is normal size. Pericardium/Pleura There is no pericardial effusion. Interpretation Summary Moderate basal septal hypertrophy. Ejection Fraction = 60-65%. There is trace to mild mitral regurgitation. There is mild tricuspid regurgitation. Right ventricular systolic pressure is normal. There is moderate aortic sclerosis.; There is no pericardial effusion. MD Santana *Mariaelena 11/04/2018 02:56 PM
--- NOTE | 2018-11-04 15:29 | PN ---
Progress Note, Physician History of Present Illness: pt seen in nuclear lab. nad. - Current Medication List Current Medications: Active Medications Acetaminophen (Tylenol -) 325 mg PO Q6H PRN PRN Reason: PAIN Albuterol Sulfate (Ventolin 0.083% Nebulizer Soln -) 1 amp NEB Q4H PRN PRN Reason: SHORT OF BREATH/WHEEZING Atorvastatin Calcium (Lipitor -) 10 mg PO HS [facility] Last Admin: 11/03/18 21:13 Dose: 10 mg Carvedilol (Coreg -) 25 mg PO BID [facility] Last Admin: 11/04/18 10:48 Dose: 25 mg Heparin Sodium (Porcine) (Heparin -) 5,000 unit SQ BID [facility] Last Admin: 11/04/18 10:49 Dose: 5,000 unit Hydrochlorothiazide (Hctz -) 25 mg PO DAILY [facility] Nifedipine (Procardia Xl -) 30 mg PO BID [facility] Oxycodone HCl (Roxicodone -) 5 mg PO Q6H PRN PRN Reason: PAIN LEVEL 1-5 Sitagliptin Phosphate (Januvia -) 25 mg PO DAILY@0700 [facility] Last Admin: 11/04/18 06:41 Dose: Not Given Valsartan (Diovan -) 160 mg PO BID [facility] Last Admin: 11/04/18 10:55 Dose: 160 mg - Objective Vital Signs: Vital Signs Temperature 97.8 F 11/04/18 06:00 Pulse Rate 62 11/04/18 10:00 Respiratory Rate 18 11/04/18 10:00 Blood Pressure 204/100 H 11/04/18 10:00 O2 Sat by Pulse Oximetry (%) 96 11/03/18 21:00 Labs: CBC, BMP 11/04/18 05:55 11/04/18 05:55 - ....Imaging Chest X-ray: Report Reviewed, Image Reviewed EKG: Report Reviewed, Image Reviewed Other: Report Reviewed, Image Reviewed Assessment/Plan 75 year old woman with a pmh HTN, HLD, DMII, TIA, ALVA s/p L CEA, L breast CA, prior admissions with uncontrolled HTN, [facility]SEY, adm with uncontrolled HTN, chest pressure, sob. HTN-variable, severely uncontrolled intermittently -adjustments made to meds today -amlodipine changed to nifedipine, HCTZ added -being evaluated for secondary causes of HTN -consider renal doppler US to evaluate for renal artery stenosis if not already done in the past Chest pain- -ekg no ischemia, nsr with apcs and pvcs -cardiac enzymes wnl -echo today showed normal LVEF, mild to mod valvular abnl -fup nuclear stress test today
[2018-11-04] MEDS: HYDROCHLOROTHIAZIDE 25 MG TABLET (FP) PO SCH (17:40)
[2018-11-04] MEDS: NIFEdipine E.R. 30 MG TABLET (FP) PO SCH (23:23)
[2018-11-04] MEDS: ATORVASTATIN CA 10 MG TABLET (FP) PO SCH (23:23)
[2018-11-05] MEDS: sitaGLIPtin PHOSPHATE 25 MG TABLET (FP) PO SCH (06:54)
[2018-11-05] MEDS: NIFEdipine E.R. 30 MG TABLET (FP) PO SCH ×2 (09:50→22:32)
[2018-11-05] MEDS: HEPARIN NA (PORCINE) 5,000 UNITS/ML 1ML VIAL SQ SCH ×2 (09:50→22:32)
[2018-11-05] MEDS: HYDROCHLOROTHIAZIDE 25 MG TABLET (FP) PO SCH (09:50)
[2018-11-05] MEDS: VALSARTAN 160 MG TABLET (UD) PO SCH ×2 (09:50→22:32)
[2018-11-05] MEDS: CARVEDILOL 25 MG TABLET (FP) PO SCH ×2 (09:51→22:32)
--- NOTE | 2018-11-05 10:15 | PN ---
Progress Note, Physician Chief Complaint: stress test completed denies cp - Current Medication List Current Medications: Active Medications Acetaminophen (Tylenol -) 325 mg PO Q6H PRN PRN Reason: PAIN Last Admin: 11/04/18 17:55 Dose: 325 mg Albuterol Sulfate (Ventolin 0.083% Nebulizer Soln -) 1 amp NEB Q4H PRN PRN Reason: SHORT OF BREATH/WHEEZING Atorvastatin Calcium (Lipitor -) 10 mg PO HS [facility] Last Admin: 11/04/18 23:23 Dose: 10 mg Carvedilol (Coreg -) 25 mg PO BID [facility] Last Admin: 11/05/18 09:51 Dose: 25 mg Heparin Sodium (Porcine) (Heparin -) 5,000 unit SQ BID [facility] Last Admin: 11/05/18 09:50 Dose: 5,000 unit Hydrochlorothiazide (Hctz -) 25 mg PO DAILY [facility] Last Admin: 11/05/18 09:50 Dose: 25 mg Nifedipine (Procardia Xl -) 30 mg PO BID [facility] Last Admin: 11/05/18 09:50 Dose: 30 mg Sitagliptin Phosphate (Januvia -) 25 mg PO DAILY@0700 [facility] Last Admin: 11/05/18 06:54 Dose: 25 mg Valsartan (Diovan -) 160 mg PO BID [facility] Last Admin: 11/05/18 09:50 Dose: 160 mg - Objective Vital Signs: Vital Signs Temperature 98 F 11/05/18 08:41 Pulse Rate 68 11/05/18 09:49 Respiratory Rate 18 11/05/18 09:49 Blood Pressure 138/68 11/05/18 09:49 O2 Sat by Pulse Oximetry (%) 97 11/04/18 22:00 Constitutional: Yes: Calm Eyes: Yes: EOM Intact HENT: Yes: Normocephalic Neck: Yes: Trachea Midline Cardiovascular: Yes: Regular Rate and Rhythm Respiratory: Yes: CTA Bilaterally Gastrointestinal: Yes: Normal Bowel Sounds ...Rectal Exam: Yes: Deferred Genitourinary: Yes: WNL Extremities: Yes: WNL Integumentary: Yes: WNL Psychiatric: Yes: Alert, Oriented Labs: CBC, BMP 11/04/18 05:55 11/04/18 05:55 Assessment/Plan Current Active Problems dm 2, hld carrotid artery stenosis Chest pain (Acute) Hypertension (Acute) Shortness of breath (Acute) Laboratory Tests 11/04/18 11/04/18 05:55 06:25 Hemoglobin A1c % 6.8 H TSH 0.32 L plan: await carotid doppler cardiology follow up vascular consult
--- NOTE | 2018-11-05 10:54 | PN ---
Progress Note, Physician - Current Medication List Current Medications: Active Medications Acetaminophen (Tylenol -) 325 mg PO Q6H PRN PRN Reason: PAIN Last Admin: 11/04/18 17:55 Dose: 325 mg Albuterol Sulfate (Ventolin 0.083% Nebulizer Soln -) 1 amp NEB Q4H PRN PRN Reason: SHORT OF BREATH/WHEEZING Atorvastatin Calcium (Lipitor -) 10 mg PO HS [facility] Last Admin: 11/04/18 23:23 Dose: 10 mg Carvedilol (Coreg -) 25 mg PO BID [facility] Last Admin: 11/05/18 09:51 Dose: 25 mg Heparin Sodium (Porcine) (Heparin -) 5,000 unit SQ BID [facility] Last Admin: 11/05/18 09:50 Dose: 5,000 unit Hydrochlorothiazide (Hctz -) 25 mg PO DAILY [facility] Last Admin: 11/05/18 09:50 Dose: 25 mg Nifedipine (Procardia Xl -) 30 mg PO BID [facility] Last Admin: 11/05/18 09:50 Dose: 30 mg Sitagliptin Phosphate (Januvia -) 25 mg PO DAILY@0700 [facility] Last Admin: 11/05/18 06:54 Dose: 25 mg Valsartan (Diovan -) 160 mg PO BID [facility] Last Admin: 11/05/18 09:50 Dose: 160 mg - Objective Vital Signs: Vital Signs Temperature 98 F 11/05/18 08:41 Pulse Rate 68 11/05/18 09:49 Respiratory Rate 18 11/05/18 09:49 Blood Pressure 138/68 11/05/18 09:49 O2 Sat by Pulse Oximetry (%) 97 11/04/18 22:00 Labs: CBC, BMP 11/04/18 05:55 11/04/18 05:55 Assessment/Plan (1) Chest pain Assessment/Plan: -cardiology consult -tele monitoring -troponin neg x 2 -Echo+ carotid US -Stress test positive--will d/w cardiology Code(s): R07.9 - CHEST PAIN, UNSPECIFIED Qualifiers: Chest pain type: unspecified Qualified Code(s): R07.9 - Chest pain, unspecified (2) Hypertension Assessment/Plan: -Carvedilol, Valsartan, Amlodipine -D/C amlodipine -start Nifedipine 30 mg po BID -Add HCTZ 25 mg po daily -Low Na diet Code(s): I10 - ESSENTIAL (PRIMARY) HYPERTENSION Qualifiers: Hypertension type: unspecified Qualified Code(s): I10 - Essential (primary ) hypertension (3) Carotd Stenosis Assessment/Plan: -Vascular consult (4) DM2 (diabetes mellitus, type 2) Assessment/Plan: -BGM ACHS -Sitagliptan -HgA1c 6.8 -Diabetic low sodium diet Code(s): E11.9 - TYPE 2 DIABETES MELLITUS WITHOUT COMPLICATIONS Qualifiers: Diabetes mellitus complication status: with hypoglycemia
[2018-11-05] MEDS: ATORVASTATIN CA 10 MG TABLET (FP) PO SCH (22:32)
[2018-11-06] MEDS: sitaGLIPtin PHOSPHATE 25 MG TABLET (FP) PO SCH (06:19)
[2018-11-06] MEDS: CARVEDILOL 25 MG TABLET (FP) PO SCH ×2 (09:51→21:40)
[2018-11-06] MEDS: HYDROCHLOROTHIAZIDE 25 MG TABLET (FP) PO SCH (09:51)
[2018-11-06] MEDS: VALSARTAN 160 MG TABLET (UD) PO SCH ×2 (09:51→21:40)
[2018-11-06] MEDS: HEPARIN NA (PORCINE) 5,000 UNITS/ML 1ML VIAL SQ SCH ×2 (09:51→21:40)
[2018-11-06] MEDS: NIFEdipine E.R. 30 MG TABLET (FP) PO SCH ×2 (09:51→21:40)
--- NOTE | 2018-11-06 11:32 | PN ---
Progress Note, Physician - Current Medication List Current Medications: Active Medications Acetaminophen (Tylenol -) 325 mg PO Q6H PRN PRN Reason: PAIN Last Admin: 11/04/18 17:55 Dose: 325 mg Albuterol Sulfate (Ventolin 0.083% Nebulizer Soln -) 1 amp NEB Q4H PRN PRN Reason: SHORT OF BREATH/WHEEZING Atorvastatin Calcium (Lipitor -) 10 mg PO HS [facility] 234 BEDS AT [facility] Last Admin: 11/05/18 22:32 Dose: 10 mg Carvedilol (Coreg -) 25 mg PO BID [facility] 234 BEDS AT [facility] Last Admin: 11/06/18 09:51 Dose: 25 mg Heparin Sodium (Porcine) (Heparin -) 5,000 unit SQ BID [facility] 234 BEDS [facility] Last Admin: 11/06/18 09:51 Dose: 5,000 unit Hydrochlorothiazide (Hctz -) 25 mg PO DAILY [facility] 234 BEDS AT [facility] Last Admin: 11/06/18 09:51 Dose: 25 mg Nifedipine (Procardia Xl -) 30 mg PO BID [facility] 234 BEDS [facility] Last Admin: 11/06/18 09:51 Dose: 30 mg Sitagliptin Phosphate (Januvia -) 25 mg PO DAILY@0700 [facility]CLUDE 234 BEDS AT [facility] Last Admin: 11/06/18 06:19 Dose: 25 mg Valsartan (Diovan -) 160 mg PO BID [facility] 234 BEDS [facility] Last Admin: 11/06/18 09:51 Dose: 160 mg - Objective Vital Signs: Vital Signs Temperature 98 F 11/06/18 10:00 Pulse Rate 78 11/06/18 10:00 Respiratory Rate 18 11/06/18 10:00 Blood Pressure 128/68 11/06/18 10:00 O2 Sat by Pulse Oximetry (%) 97 11/05/18 21:00 Cardiovascular: Yes: Regular Rate and Rhythm Respiratory: Yes: Regular, CTA Bilaterally Gastrointestinal: Yes: Normal Bowel Sounds, Soft Labs: CBC, BMP 11/04/18 05:55 11/04/18 05:55 Assessment/Plan (1) Chest pain Assessment/Plan: -cardiology consult -tele monitoring -troponin neg x 2 -Echo+ carotid US -Stress test positive--d/w cardiology Code(s): R07.9 - CHEST PAIN, UNSPECIFIED Qualifiers: Chest pain type: unspecified Qualified Code(s): R07.9 - Chest pain, unspecified (2) Hypertension Assessment/Plan: -Carvedilol, Valsartan, Amlodipine -D/C amlodipine -start Nifedipine 30 mg po BID -Add HCTZ 25 mg po daily -Low Na diet Code(s): I10 - ESSENTIAL (PRIMARY) HYPERTENSION Qualifiers: Hypertension type: unspecified Qualified Code(s): I10 - Essential (primary ) hypertension (3) Carotd Stenosis Assessment/Plan: -Vascular consult (4) Cerebral aneurysm Assessment/Plan: -noted on old study -mra (5) DM2 (diabetes mellitus, type 2) Assessment/Plan: -BGM ACHS -Sitagliptan -HgA1c 6.8 -Diabetic low sodium diet Code(s): E11.9 - TYPE 2 DIABETES MELLITUS WITHOUT COMPLICATIONS Qualifiers: Diabetes mellitus complication status: with hypoglycemia
--- NOTE | 2018-11-06 12:06 | PN ---
Progress Note (short form) - Note Progress Note: Vascular Surgery Carotid doppler images reviewed. not officially read as of yet. There are no elevated Peak sysotlic or end diastolic pressures in either ICA. Normal carotid US. Will wait for official result Mitch Zamorano DO
--- NOTE | 2018-11-06 13:09 | PN ---
Progress Note, Physician Chief Complaint: No recurrent chest pain No sob Sinus on tele with pvc's History of Present Illness: 75 year old woman with a pmh HTN, HLD, DMII, TIA, ALVA s/p L CEA, L breast CA, prior admissions with uncontrolled HTN, [facility], adm with uncontrolled HTN, chest pressure, sob. - Current Medication List Current Medications: Active Medications Acetaminophen (Tylenol -) 325 mg PO Q6H PRN PRN Reason: PAIN Last Admin: 11/04/18 17:55 Dose: 325 mg Albuterol Sulfate (Ventolin 0.083% Nebulizer Soln -) 1 amp NEB Q4H PRN PRN Reason: SHORT OF BREATH/WHEEZING Atorvastatin Calcium (Lipitor -) 10 mg PO HS [facility] Last Admin: 11/05/18 22:32 Dose: 10 mg Carvedilol (Coreg -) 25 mg PO BID [facility] Last Admin: 11/06/18 09:51 Dose: 25 mg Heparin Sodium (Porcine) (Heparin -) 5,000 unit SQ BID [facility] Last Admin: 11/06/18 09:51 Dose: 5,000 unit Hydrochlorothiazide (Hctz -) 25 mg PO DAILY [facility] Last Admin: 11/06/18 09:51 Dose: 25 mg Nifedipine (Procardia Xl -) 30 mg PO BID [facility] Last Admin: 11/06/18 09:51 Dose: 30 mg Sitagliptin Phosphate (Januvia -) 25 mg PO DAILY@0700 [facility] Last Admin: 11/06/18 06:19 Dose: 25 mg Valsartan (Diovan -) 160 mg PO BID [facility] Last Admin: 11/06/18 09:51 Dose: 160 mg - Objective Vital Signs: Vital Signs Temperature 98 F 11/06/18 10:00 Pulse Rate 78 11/06/18 10:00 Respiratory Rate 18 11/06/18 10:00 Blood Pressure 128/68 11/06/18 10:00 O2 Sat by Pulse Oximetry (%) 97 11/05/18 21:00 Constitutional: Yes: No Distress Neck: Yes: Supple Cardiovascular: Yes: WNL Respiratory: Yes: CTA Bilaterally Gastrointestinal: Yes: Soft Edema: No Labs: CBC, BMP 11/04/18 05:55 11/04/18 05:55 Assessment/Plan 75 year old woman with a pmh HTN, HLD, DMII, TIA, ALVA s/p L CEA, L breast CA, prior admissions with uncontrolled HTN, [facility]SE[facility], adm with uncontrolled HTN, chest pressure, sob. HTN-controlled today on regimen -being evaluated for secondary causes of HTN -consider renal doppler US to evaluate for renal artery stenosis if not already done in the past Chest pain- -ekg no ischemia, nsr with apcs and pvcs -cardiac enzymes wnl -echo showed normal LVEF, mild to mod valvular abnl -NST with mild, non-extensive basal anterolateral ischemia consistent with branch disease. Remains chest pain free. Would manage medically for now. BP control. Aspirin 81mg daily if no contraindication. Uptitrate statin as outpatient. On beta fabricio. Follow up with cardiology as an outpatient at Dr. Gordon's office. Please call back if needed
[2018-11-06] MEDS: ATORVASTATIN CA 10 MG TABLET (FP) PO SCH (21:40)
[2018-11-07] MEDS: sitaGLIPtin PHOSPHATE 25 MG TABLET (FP) PO SCH (06:41)
[2018-11-07 06:49] VITALS: TEMP 98
--- NOTE | 2018-11-07 08:31 | PN ---
Progress Note (short form) - Note Progress Note: VASCULAR SURGERY Awaiting official results of Carotid study. Will cont to follow.
[2018-11-07 10:01] VITALS: BP 130/63; PULSE 72
[2018-11-07] MEDS: VALSARTAN 160 MG TABLET (UD) PO SCH (10:19)
[2018-11-07] MEDS: NIFEdipine E.R. 30 MG TABLET (FP) PO SCH (10:19)
[2018-11-07] MEDS: CARVEDILOL 25 MG TABLET (FP) PO SCH (10:19)
[2018-11-07] MEDS: HYDROCHLOROTHIAZIDE 25 MG TABLET (FP) PO SCH (10:19)
[2018-11-07] MEDS: HEPARIN NA (PORCINE) 5,000 UNITS/ML 1ML VIAL SQ SCH (10:19)
[2018-11-07] MEDS ORDERED: ATORVASTATIN CA 20 MG TABLET (FP) PO SCH (11:22)
--- NOTE | 2018-11-07 11:31 | DS ---
Physical Examination Vital Signs: Vital Signs Temperature 98.0 F 11/07/18 06:48 Pulse Rate 72 11/07/18 10:00 Respiratory Rate 18 11/07/18 10:00 Blood Pressure 130/63 11/07/18 10:00 O2 Sat by Pulse Oximetry (%) 97 11/06/18 21:00 Findings/Remarks: Patient is a 78 y/o female with past medical history of HTN, TIA, NIDDM, L breast CA. Patient was in PCP office this morning when she was noted to have BP 210/110 in office accomapnied with chest pain and SOB. She took her morning dose of Valsartan and Carvedilol. Upon arrival to ER BP 150s systolic. Since ED arrival states she has lest chest pressure and SOB. Constitutional: Yes: Well Nourished, No Distress, Calm Cardiovascular: Yes: Regular Rate and Rhythm Respiratory: Yes: Regular Gastrointestinal: Yes: Normal Bowel Sounds, Soft Musculoskeletal: Yes: WNL Extremities: Yes: WNL Edema: No Peripheral Pulses WNL: Yes Neurological: Yes: Alert, Oriented Psychiatric: Yes: Alert, Oriented Labs: CBC, BMP 11/04/18 05:55 11/04/18 05:55 Discharge Summary Reason For Visit: DYSPNEA,CHEST PAIN,HYPERTENSION Current Active Problems Chest pain (Acute) Hypertension (Acute) Shortness of breath (Acute) Hospital Course: Laboratory Last Values WBC 7.7 K/mm3 (4.0-10.0) 11/04/18 05:55 RBC 4.27 M/mm3 (3.60-5.2) 11/04/18 05:55 Hgb 12.7 GM/dL (10.7-15.3) 11/04/18 05:55 Hct 37.2 % (32.4-45.2) 11/04/18 05:55 MCV 87.0 fl (80-96) 11/04/18 05:55 MCH 29.7 pg (25.7-33.7) 11/04/18 05:55 MCHC 34.1 g/dl (32.0-36.0) 11/04/18 05:55 RDW 13.7 % (11.6-15.6) 11/04/18 05:55 Plt Count 231 K/MM3 (134-434) 11/04/18 05:55 MPV 8.3 fl (7.5-11.1) 11/04/18 05:55 Absolute Neuts (auto) 4.1 K/mm3 (1.5-8.0) 11/04/18 05:55 Neutrophils % 53.6 % (42.8-82.8) 11/04/18 05:55 Lymphocytes % 33.8 % (8-40) D 11/04/18 05:55 Monocytes % 9.7 % (3.8-10.2) 11/04/18 05:55 Eosinophils % 2.4 % (0-4.5) 11/04/18 05:55 Basophils % 0.5 % (0-2.0) 11/04/18 05:55 Nucleated RBC % 0 % (0-0) 11/04/18 05:55 Sodium 135 mmol/L (136-145) L 11/04/18 05:55 Potassium 4.5 mmol/L (3.5-5.1) 11/04/18 05:55 Chloride 102 mmol/L (98-107) 11/04/18 05:55 Carbon Dioxide 28 mmol/L (21-32) 11/04/18 05:55 Anion Gap 5 MMOL/L (8-16) L 11/04/18 05:55 BUN 15.1 mg/dL (7-18) 11/04/18 05:55 Creatinine 0.7 mg/dL (0.55-1.3) 11/04/18 05:55 Est GFR (CKD-EPI)AfAm 94.84 11/04/18 05:55 Est GFR (CKD-EPI)NonAf 81.83 11/04/18 05:55 POC Glucometer 164 UNITS (80-120) 11/07/18 06:30 Random Glucose 148 mg/dL (74-106) H 11/04/18 05:55 Hemoglobin A1c % 6.8 % (4.2-6.3) H 11/04/18 06:25 Calcium 8.7 mg/dL (8.5-10.1) 11/04/18 05:55 Phosphorus 3.4 mg/dL (2.5-4.9) 11/04/18 05:55 Magnesium 1.8 mg/dL (1.8-2.4) 11/04/18 05:55 Total Bilirubin 1.2 mg/dL (0.2-1) H 11/04/18 05:55 AST 9 U/L (15-37) L 11/04/18 05:55 ALT 20 U/L (13-61) 11/04/18 05:55 Alkaline Phosphatase 44 U/L (45-117) L 11/04/18 05:55 Creatine Kinase 39 U/L (26-192) 11/03/18 12:56 Troponin I < 0.02 ng/ml (0.00-0.05) 11/04/18 05:55 B-Natriuretic Peptide 868.3 pg/ml (5-450) H 11/04/18 05:55 Total Protein 6.2 g/dl (6.4-8.2) L 11/04/18 05:55 Albumin 3.1 g/dl (3.4-5.0) L 11/04/18 05:55 Triglycerides 138 mg/dL (0-150) 11/04/18 05:55 Cholesterol 164 mg/dL (50-200) 11/04/18 05:55 Total LDL Cholesterol 88 mg/dL (5-100) 11/04/18 05:55 HDL Cholesterol 63 mg/dL (40-60) H 11/04/18 05:55 TSH 0.32 uIU/ml (0.358-3.74) L 11/04/18 05:55 Cortisol AM Sample 19.6 ug/dL (6.2-19.4) H 11/04/18 05:55 Vital Signs Temp 98.0 F 11/07/18 06:48 Pulse 72 11/07/18 10:00 Resp 18 11/07/18 10:00 BP 130/63 11/07/18 10:00 Pulse Ox 97 11/06/18 21:00 Intake & Output 11/06/18 11/06/18 11/07/18 11:59 23:59 11:59 Intake Total 200 250 240 Balance 200 250 240 Weight 74.933 kg 74.843 kg Intake: Oral 200 250 240 Other: Voiding Method Toilet Toilet Toilet # Unmeasured Voids Void 2 1 2 Bowel Movement No Weight Measurement Method Standing Scale Standing Scale Condition: Stable - Instructions Diet, Activity, Other Instructions: Low sodium diabetic diet Follow up with PCP and cardiology Referrals: Edison Gordon MD [Primary Care Provider] - Wesley Nath MD [Staff Physician] - Disposition: HOME - Home Medications Comprehensive Discharge Medication List: Ambulatory Orders Sitagliptin Phosphate [Januvia -] 25 mg PO DAILY@0700 tab 12/04/15 Carvedilol [Coreg -] 25 mg PO BID #60 tablet 12/09/15 Valsartan [Diovan] 160 mg PO BID #60 tablet 12/09/15 Oxycodone HCl/Acetaminophen [Percocet 5-325 mg Tablet] 1 - 2 tab PO Q6H PRN #30 tab MDD 6 01/07/16 Acetaminophen [Tylenol .Regular Strength -] 325 mg PO Q6H PRN tablet 11/07/18 Atorvastatin Ca [Lipitor] 20 mg PO HS #30 tablet 11/07/18 Hydrochlorothiazide [Hctz -] 25 mg PO DAILY #30 tablet 11/07/18 Nifedipine ER [Procardia XL -] 30 mg PO BID #60 tab.er.24 11/07/18
== END 2018-11-07 13:19 | disposition home or self-care (01) | DRG 305 ==
LOC: JER 12:21 → JERBED 14:10 → J4W 16:55
PROVIDERS: ADMIT Family Medicine; ATTEND Family Medicine
DX: I10 Essential (primary) hypertension (principal); R07.9 Chest pain, unspecified; E11.9 Type 2 diabetes mellitus without complications; Z79.84 Long term (current) use of oral hypoglycemic drugs; Z86.73 Personal history of transient ischemic attack (TIA), and cerebral infarction without residual deficits; E78.5 Hyperlipidemia, unspecified; I49.3 Ventricular premature depolarization
CPT/HCPCS: 36415; 71045-TC-FY; 76775-TC; 78452-TC; 80053; 80061; 82533; 82550; 82570; 82962; 83036; 83721; 83735; 83880; 84100; 84436; 84443; 84484; 84585; 85025; 93005; 93010; 93017; 93306-TC; 93880-TC; 97116-GP; 97161-GP; 99281-25; 99284-25; A9502; J1644; J2785

== ENCOUNTER → 2019-01-17 | Day surgery (SDC) | payer OTHER | LOC: JRADIR 09:31 ==

== ENCOUNTER 2020-02-24 18:35 | Emergency (ER) | payer OTHER ==
--- OUTSIDE RECORDS SUMMARY | 2020-02-24 18:48 | XMS ---
:[address] [facility] Support Name Relationship Address Phone RE Unavailable Unavailable Unavailable UE Unavailable Unavailable Unavailable TAVIA SCHWARZ [address] [facility] [place] [id number] SONIA FRIEND DAUGHTER [address] [facility] [place] [phone] Re-disclosure Warning The records that you are about to access may contain information from federally- assisted alcohol or drug abuse programs. If such information is present, then the following federally mandated warning applies: This information has been disclosed to you from records protected by federal confidentiality rules (42 CFR part 2). The federal rules prohibit you from making any further disclosure of this information unless further disclosure is expressly permitted by the written consent of the person to whom it pertains or as otherwise permitted by 42 CFR part 2. A general authorization for the release of medical or other information is NOT sufficient for this purpose. The Federal rules restrict any use of the information to criminally investigate or prosecute any alcohol or drug abuse patient.The records that you are about to access may contain highly sensitive health information, the redisclosure of which is protected by Article 27-F of the [facility] Public Health law. If you continue you may haveaccess to information: Regarding HIV / AIDS; Provided by facilities licensed or operated by the [facility] Office of Mental Health; or Provided by the [facility] Office for People With Developmental Disabilities. If such information is present, then the following [facility] mandated warning applies: This information has been disclosed to you from confidential records which are protected by state law. State law prohibits you from making any further disclosure of this information without the specific written consent of the person to whom it pertains, or as otherwise permitted by law. Any unauthorized further disclosure in violation of state law may result in a fine or long term sentence or both. A general authorization for the release of medical or other information is NOT sufficient authorization for further disclosure. Insurance Providers Payer name Policy type Policy ID Covered Covered republican's Policy P yael / Coverage republican ID relationship to Eid Inf ormation type eid MEDICARE [id number] SP [id number] MEDICAID [id number] SP [id number] [facility] [id number] SP [id number] HEALTHCARE [employer]NG[employer] MEDICARE [id number] SP [id number] [id number] LOCAL OTHER [id number] SP [id number] [employer] [id number] SP [id number] [facility] LOCAL OTHER [id number] SP [id number]
[2020-02-24 18:59] VITALS: TEMP 98; BMI 31.1
--- NOTE | 2020-02-24 19:18 | PDOC ---
History of Present Illness - General Chief Complaint: Blood Pressure Problem Stated Complaint: HIGH BLOOD PRESSURE Time Seen by Provider: 02/24/20 19:16 - History of Present Illness Initial Comments: This 79-year-old woman with a history of HTN/DM/HLD/breast cancer sent to the ER by her PMD, Dr. Gordon for investigation of intermittent high blood pressure readings on home monitor. The patient speaks limited Yi and her interpreter and translator is her daughter. Patient has a long history of hypertension is on multiple medications. These have been given as prescribed without lapse according to the daughter. Family has been monitoring the patient's blood pressure at home (using 3 different monitors for comparison according to patient's daughter). Patient herself has no complaints, specifically denying shortness of breath, chest pain or pressure, palpitations, lightheadedness. She had episode of bilateral ankle edema several weeks ago and was started on furosemide by her gas line installer, according to the patient's daughter. Otherwise, there has not been any recent change in medications. No recent change in diet with patient eating and drinking normally in recent weeks. Medications as noted below Non-smoker; no daily alcohol or recreational drug use No known allergies Past History - Medical History Allergies/Adverse Reactions: Allergies Allergy/AdvReac Type Severity Reaction Status Date / Time No Known Allergies Allergy Verified 02/24/20 18:52 Home Medications: Ambulatory Orders Carvedilol [Coreg -] 25 mg PO BID #60 tablet 12/09/15 Acetaminophen [Tylenol .Regular Strength -] 325 mg PO Q6H PRN tablet 11/07/18 Amlodipine Besylate [Norvasc -] 5 mg PO DAILY 02/24/20 Furosemide [Lasix] 40 mg PO DAILY 02/24/20 Rosuvastatin Calcium [Crestor] 10 mg PO HS 02/24/20 Spironolactone [Aldactone] 25 mg PO BID #28 tablet 02/24/20 Tamoxifen Citrate 20 mg PO DAILY 02/24/20 Valsartan [Diovan] 160 mg PO BID 02/24/20 Anemia: No Asthma: No Cancer: Yes (Left Breast) Cardiac Disorders: No CVA: Yes (TIA) COPD: No CHF: No Dementia: No Diabetes: Yes GI Disorders: No Disorders: No HTN: Yes Hypercholesterolemia: Yes Kidney Stones: Yes Liver Disease: No Seizures: No Thyroid Disease: No - Surgical History Abdominal Surgery: No Appendectomy: No Cardiac Surgery: Yes Cholecystectomy: No Lung Surgery: No Neurologic Surgery: No Orthopedic Surgery: No - Reproductive History Is Patient Now?: No - Psycho-Social/Smoking History Smoking Status: Yes Smoking History: Never smoked Have you smoked in the past 12 months: Yes Number of Cigarettes Smoked Daily: 1 'Breaking Loose' booklet given: 12/06/15 - Substance Abuse Hx (Audit-C & DAST Scrn) How often the patient has a drink containing alcohol: Never Score: In Men: 4 or > Positive; In Women: 3 or > Positive: 0 Screen Result (Pos requires Nsg. Audit-10AR): Negative In the last yr the pt used illegal drug/Rx for NonMed reason: No Score: Yes response is considered Positive: 0 Screen Result (Positive result requires Nsg. DAST-10): Negative Review of Systems - Review of Systems Able to Perform ROS?: Yes Comments:: 12 point review of systems is negative except for what is noted in the history of present illness *Physical Exam - Vital Signs Last Vital Signs Temp Pulse Resp BP Pulse Ox 98.0 F 68 16 166/77 98 02/24/20 18:42 02/24/20 18:42 02/24/20 18:42 02/24/20 18:42 02/24/20 18:42 - Physical Exam GENERAL: Adult female, alert and oriented x3, no acute distress HEAD: Normal with no signs of trauma. EYES: PERRLA, EOMI, sclera anicteric, conjunctiva clear. ENT: Ears normal, nares patent, oropharynx clear without exudates. Moist mucous membranes. NECK: Normal range of motion, supple without lymphadenopathy, JVD, or masses. LUNGS: Breath sounds equal, clear to auscultation bilaterally. No wheezes, and no crackles. HEART:Regular rate and rhythm, normal S1 and S2 without murmur, rub or gallop. ABDOMEN:.normal bowel sounds No guarding,tenderness or rebound.No masses No distention. EXTREMITIES: Normal range of motion, no edema. No clubbing or cyanosis. No erythema, or tenderness. NEUROLOGICAL: Cranial nerves II through XII grossly intact. Normal speech. No focal neurological deficits. MUSCULOSKELETAL: Back non-tender to palpation, no CVA tenderness SKIN: Warm, Dry, normal turgor, no rashes or lesions noted. Twelve-lead electrocardiogram is performed and preliminary interpretation by me: Normal sinus rhythm 67 bpm; mild LVH; no acute ST or T wave abnormalities. Felicity and intervals are normal. It is essentially unchanged from EKG dated 11/03/2018 ED Treatment Course - LABORATORY CBC & Chemistry Diagram: 02/24/20 19:20 02/24/20 19:20 Medical Decision Making - Medical Decision Making CBC and chemistry profile evaluated CBC is essentially normal. Chemistry profile notable for sodium 126, chloride 91; BUN is 21 with a creatini ne of 0.7 Laboratory results discussed with Dr. Gordon: Abnormalities most likely related to use of furosemide. Will hold furosemide and begin Aldactone 25 mg twice a day. First dose of Aldactone 25 mg will be given here in the emergency room. Prescription will be sent to the pharmacy Repeat blood pressure 135/69 Patient can be discharged; Dr. Gordon will likely have patient be evaluated by pipe smoking machine offbearer (Dr. Warren) Furosemide should be stopped but remainder of the medication should be taken as previously as prescribed with Aldactone 25 mg twice a day added. If the patient experiences lightheadedness, chest pain/pressure, shortness of breath she should return to the ER. Otherwise, Dr. Gordon should be contacted within the next 48 hours and follow-up as advised. Discharge - Discharge Information Problems reviewed: Yes Clinical Impression/Diagnosis: Hypertension Qualifiers: Hypertension type: unspecified Qualified Code(s): I10 - Essential (primary) hypertension Condition: Stable Disposition: HOME - Additional Discharge Information Prescriptions: Spironolactone [Aldactone] 25 mg PO BID #28 tablet - Follow up/Referral Referrals: Edison Gordon MD [Primary Care Provider] - 2 Days - Patient Discharge Instructions Patient Printed Discharge Instructions: DI for High Blood Pressure Additional Instructions: Stop Furosemide. Begin Aldactone 25mg twice a day. Continue other medications as prescribed. Followup with Dr Gordon within the next 48 hours. Return to ER if you develop shortness of breath, chest pressure/pain, leg swe lling. - Post Discharge Activity
[2020-02-24 19:45] LABS: BASO % 0.1 % (0-2.0); HEMATOCRIT 36.5 % (32.4-45.2); HEMOGLOBIN 12.2 GM/dl (10.7-15.3); LYMPH % 24.6 % (8-40); MCH 29.1 pg (25.7-33.7); MCHC 33.3 g/dl (32.0-36.0); MEAN CELL VOLUME 87.3 fl (80-96); MEAN PLT VOLUME 8.7 fl (7.5-11.1); MONO % 8.7 % (3.8-10.2); NEUT % 64.6 % (42.8-82.8); PLATELET COUNT 211 K/MM3 (134-434); RBC 4.19 M/mm3 (3.60-5.2); RDW 12.6 % (11.6-15.6); WHITE BLOOD COUNT 9.9 K/mm3 (4.0-10.8)
[2020-02-24 19:53] LABS: ALBUMIN 3.5 g/dl (3.4-5.0); BILIRUBIN,TOTAL 0.7 mg/dl (0.2-1); CALCIUM 8.4 mg/dl (8.5-10); CREATININE 0.7 mg/dl (0.55-1.3); POTASSIUM 3.7 mmol/L (3.5-5.1); TOT PROT 6.5 g/dl (6.4-8.2)
[2020-02-24] MEDS ORDERED: SPIRONOLACTONE 25 MG TABLET PO ONE (20:22)
[2020-02-24 20:24] VITALS: BP 134/69; PULSE 64
--- NOTE | 2020-02-25 14:40 | EKG ---
Test Reason : Blood Pressure : / mmHG Vent. Rate : 067 BPM Atrial Rate : 067 BPM P-R Int : 190 ms QRS Dur : 096 ms QT Int : 436 ms P-R-T Axes : 067 -10 039 degrees QTc Int : 460 ms SINUS RHYTHM WITH PREMATURE ATRIAL COMPLEXES WITH ABERRANT CONDUCTION MINIMAL VOLTAGE CRITERIA FOR LVH, MAY BE NORMAL VARIANT BORDERLINE ECG WHEN COMPARED WITH ECG OF 03-NOV-2018 12:29, ABERRANT CONDUCTION IS NOW PRESENT T WAVE AMPLITUDE HAS INCREASED IN ANTERIOR LEADS Confirmed by MD SHANA, ARIANNA ([id number]) on 02/25/2020 2:40:01 PM Referred By: Fercho ARTEAGA Confirmed By:ARIANNA SALDANA MD
== END 2020-02-24 20:39 | disposition home or self-care (01) ==
LOC: FER 18:35
DX: I10 Essential (primary) hypertension (principal)
CPT/HCPCS: 36415; 80053; 82550; 84484; 85025; 93005; 99284-25

== ENCOUNTER 2021-07-03 19:10 | Inpatient (IN) | payer OTHER ==
[2021-07-03] MEDS ORDERED: SODIUM CHLORIDE 0.9% 500 ML INFUS.BAG IV ONE (19:13)
[2021-07-03 20:33] LABS: BASO % 0.2 % (0-2.0); EOS % 0.2 % (0-4.5); HEMATOCRIT 23.6 % (32.4-45.2); HEMOGLOBIN 7.8 GM/dL (10.7-15.3); MCH 32.1 pg (25.7-33.7); MCHC 32.9 g/dl (32.0-36.0); MEAN CELL VOLUME 97.6 fl (80-96); MEAN PLT VOLUME 9.6 fl (7.5-11.1); MONO % 2.8 % (3.8-10.2); NEUT % 84.8 % (42.8-82.8); PLATELET COUNT 154 10^3/uL (134-434); RBC 2.42 M/mm3 (3.60-5.2); RDW 20.4 % (11.6-15.6)
[2021-07-03 20:38] LABS: INR 1.27 (0.83-1.09); PROTHROMBIN TIME (PATIENT) 14.6 SEC (9.7-13.0)
[2021-07-03 20:41] LABS: ACTIVATED PTT 22.4 SECONDS (25.2-36.5)
[2021-07-03 20:54] LABS: CHLORIDE 114 mmol/L (98-107); SODIUM 149 mmol/L (136-145)
[2021-07-03 20:57] LABS: ALBUMIN 1.1 g/dl (3.4-5.0); BLOOD UREA NITROGEN 48.5 mg/dL (7-18); CALCIUM 7.9 mg/dL (8.5-10.1); CO2 19 mmol/L (21-32); GLUCOSE,RANDOM 278 mg/dL (74-106)
[2021-07-03 21:00] LABS: CREATININE 1.2 mg/dL (0.55-1.3); SGOT/AST 180 U/L (15-37); SGPT/ALT 201 U/L (13-61)
[2021-07-03 21:02] LABS: ALK PHOS 64 U/L (45-117); BILIRUBIN,TOTAL 0.2 mg/dL (0.2-1)
[2021-07-03 21:23] LABS: ANION GAP 16 MMOL/L (8-16); LACTIC ACID 9.1 mmol/L (0.4-2.0)
[2021-07-03] MEDS ORDERED: POTASSIUM CHLORIDE 20 MEQ PREMIX IVPB 100 ML IVPB ONE (21:25)
[2021-07-03] MEDS ORDERED: POTASSIUM CHLORIDE ORAL LIQUID 20 MEQ/15 ML PO ONE (21:30)
[2021-07-03] MEDS: NOREPINEPHRINE BITARTRATE 16,000 MCG in DEXTROSE 5%-WATER - 484 ML IVPB SCH (21:35)
[2021-07-03] MEDS ORDERED: POTASSIUM CHLORIDE ORAL LIQUID 20 MEQ/15 ML NGT ONE (21:45)
[2021-07-03] MEDS ORDERED: POTASSIUM CHLORIDE ORAL LIQUID 20 MEQ/15 ML ONE (22:03)
[2021-07-03] MEDS ORDERED: PIPERACILLIN/TAZOB 4.5 GM 4.5 GM in DEXTROSE 5%-WATER 100 ML IVPB ONE (22:15)
[2021-07-03] MEDS ORDERED: SODIUM CHLORIDE 1,000 ML IV SCH (22:15)
[2021-07-03] MEDS ORDERED: VANCOMYCIN 1,000 MG in DEXTROSE 5%-WATER - 250 ML IVPB ONE (22:15)
[2021-07-03] MEDS ORDERED: PIPERACILLIN/TAZOB 4.5 GM 4.5 GM/100 ML BAG IVPB ONE (22:20)
[2021-07-03 22:28] LABS: VENOUS BASE EXCESS -7.1 mmol/L (-2-2); VENOUS O2 SATURATION 90.2 % (70-80); VENOUS PCO2 31.2 mmHg (38-52); VENOUS PH 7.368 (7.310-7.410)
[2021-07-03 22:37] LABS: EPI CELLS 4 /uL (0-25.1); HYALINE CASTS 1 /uL (0-3.1); URINE APPEARANCE CLOUDY; URINE BACTERIA >9,000 /uL (0-1359); URINE BILIRUBIN NEGATIVE (NEGATIVE); URINE COLOR YELLOW; URINE GLUCOSE (UA) NEGATIVE (NEGATIVE); URINE KETONE NEGATIVE (NEGATIVE); URINE LEUK ESTERASE TRACE (NEGATIVE); URINE NITRITE NEGATIVE (NEGATIVE); URINE PROTEIN TRACE (NEGATIVE); URINE RBC 56 /uL (0-23.9); URINE UROBILINOGEN 0.2 mg/dL (0.2-1.0); URINE WBC 379 /uL (0-25.8)
[2021-07-03 22:51] LABS: MAGNESIUM 1.5 mg/dL (1.8-2.4)
[2021-07-03] MEDS: PIPERACILLIN/TAZOB 3.375 GM 3.375 GM in DEXTROSE 5%-WATER - 50 ML IVPB SCH (23:02)
[2021-07-03] MEDS ORDERED: VANCOMYCIN 1 GRAM (PRE-DOCKED) 1,000 MG/250 ML BAG IVPB ONE (23:16)
[2021-07-03 23:20] LABS: ARTERIAL BLD GAS O2 SATURATION 99.7 % (95-98); ARTERIAL BLOOD GAS BASE EXCESS -5.8 mmol/L (-2-2); ARTERIAL BLOOD GAS PO2 307.8 mmHg (80-100); ARTERIAL BLOOD GAS pH 7.413 (7.350-7.450)
[2021-07-03 23:21] LABS: ALLENS TEST POSITIVE
[2021-07-03 23:22] LABS: VENT MODE A/C; VENT RATE 12
[2021-07-04] MEDS: PIPERACILLIN/TAZOB 3.375 GM 3.375 GM in DEXTROSE 5%-WATER - 50 ML IVPB SCH ×5 (00:14→21:28)
[2021-07-04] MEDS ORDERED: HEPARIN NA (PORCINE) 5,000 UNITS/ML 1ML VIAL IVPUSH PRN ×2 (00:48)
[2021-07-04] MEDS ORDERED: MAGNESIUM SULF 50% (8.12 MEQ/2 ML-1 GM VIAL) IVPB ONE (00:54)
[2021-07-04] MEDS: KCL 10 MEQ IVPB 10 MEQ/100 ML INFUS.BAG IVPB SCH ×3 (01:09→04:36)
[2021-07-04] MEDS ORDERED: PIPERACILLIN/TAZOBACTAM 3.375 GM VIAL IVPB ONE ×5 (01:59→21:19)
[2021-07-04] MEDS ORDERED: DEXTROSE 5%-WATER - 50 ML IVPB ONE ×5 (02:00→21:19)
[2021-07-04 02:10] LABS: HEMATOCRIT 24.6 % (32.4-45.2); HEMOGLOBIN 8.3 GM/dL (10.7-15.3); MCH 32.2 pg (25.7-33.7); MCHC 33.7 g/dl (32.0-36.0); MEAN CELL VOLUME 95.4 fl (80-96); MEAN PLT VOLUME 9.3 fl (7.5-11.1); PLATELET COUNT 162 10^3/uL (134-434); RBC 2.58 M/mm3 (3.60-5.2); RDW 20.5 % (11.6-15.6); RETICULOCYTES 2.56 % (0.5-1.5); WHITE BLOOD COUNT 13.7 K/mm3 (4.0-10.0)
[2021-07-04 02:22] LABS: CHLORIDE 115 mmol/L (98-107); SODIUM 147 mmol/L (136-145)
[2021-07-04 02:24] LABS: ANION GAP 10 MMOL/L (8-16); CALCIUM 7.2 mg/dL (8.5-10.1); CO2 22 mmol/L (21-32); MAGNESIUM 1.5 mg/dL (1.8-2.4)
[2021-07-04 02:25] LABS: ALBUMIN 1.2 g/dl (3.4-5.0); BLOOD UREA NITROGEN 49.1 mg/dL (7-18); GLUCOSE,RANDOM 318 mg/dL (74-106)
[2021-07-04] MEDS: HEPARIN INFUSION - 25,000 UNITS/500 ML INFUS.BAG IVPB SCH (02:25)
[2021-07-04 02:26] LABS: CREATININE 1.1 mg/dL (0.55-1.3)
[2021-07-04 02:28] LABS: LDH 646 U/L (84-246); PHOSPHOROUS 4.7 mg/dL (2.5-4.9); SGOT/AST 168 U/L (15-37); SGPT/ALT 200 U/L (13-61); TOT PROT 4.2 g/dl (6.4-8.2)
[2021-07-04 02:29] LABS: BILIRUBIN,TOTAL 0.5 mg/dL (0.2-1)
[2021-07-04 02:31] LABS: ALK PHOS 70 U/L (45-117)
[2021-07-04 03:33] LABS: ANISOCYTOSIS 1+; HELMET CELLS 1+; MACROCYTOSIS 1+
[2021-07-04] MEDS ORDERED: SODIUM CHLORIDE 0.9%/KCL 20 MEQ/1,000 ML INFUS.BAG IV SCH (07:22)
[2021-07-04] MEDS ORDERED: VANCOMYCIN 1 GRAM (PRE-DOCKED) 1,000 MG/250 ML BAG IVPB SCH ×2 (07:30→23:00)
[2021-07-04] MEDS: ALBUTEROL SO4 2.5/IPRATROPIUM 0.5 INH SOL 3 ML VIAL.NEB. NEB SCH ×4 (07:47→20:35)
[2021-07-04 07:51] LABS: HEMATOCRIT 23.5 % (32.4-45.2); HEMOGLOBIN 7.9 GM/dL (10.7-15.3); MCH 32.1 pg (25.7-33.7); MCHC 33.8 g/dl (32.0-36.0); MEAN PLT VOLUME 9.4 fl (7.5-11.1); PLATELET COUNT 153 10^3/uL (134-434); RBC 2.47 M/mm3 (3.60-5.2); RDW 20.9 % (11.6-15.6)
[2021-07-04 08:14] LABS: CHLORIDE 113 mmol/L (98-107); SODIUM 147 mmol/L (136-145)
[2021-07-04 08:20] LABS: ALBUMIN 1.1 g/dl (3.4-5.0); ANION GAP 12 MMOL/L (8-16); BLOOD UREA NITROGEN 50.5 mg/dL (7-18); CALCIUM 7.3 mg/dL (8.5-10.1); CO2 22 mmol/L (21-32); GLUCOSE,RANDOM 345 mg/dL (74-106); MAGNESIUM 2.2 mg/dL (1.8-2.4)
[2021-07-04 08:22] LABS: SGPT/ALT 179 U/L (13-61)
[2021-07-04 08:23] LABS: CREATININE 1.2 mg/dL (0.55-1.3); PHOSPHOROUS 4.9 mg/dL (2.5-4.9); SGOT/AST 141 U/L (15-37)
[2021-07-04 08:24] LABS: BILIRUBIN,TOTAL 0.7 mg/dL (0.2-1); TOT PROT 4.2 g/dl (6.4-8.2)
[2021-07-04 08:24] LABS: LACTIC ACID 2.3 mmol/L (0.4-2.0)
[2021-07-04 08:25] LABS: ALK PHOS 67 U/L (45-117)
[2021-07-04] MEDS ORDERED: ENOXAPARIN NA (PORCINE) 40 MG/0.4 ML DISP.SYRIN SQ SCH ×2 (10:00)
[2021-07-04] MEDS ORDERED: VANCOMYCIN/WATER 1,250 MG/250 ML BAG IVPB SCH (10:00)
[2021-07-04] MEDS: FOLIC ACID 1 MG TABLET (FP) GT SCH (10:52)
[2021-07-04] MEDS: AMIODARONE HCL 200 MG TABLET GT SCH (10:52)
[2021-07-04] MEDS: MUPIROCIN 2% TOPICAL OINTMENT FOR DECOLONIZATION NS SCH ×2 (10:52→21:28)
[2021-07-04] MEDS: PANTOPRAZOLE SODIUM 40 MG VIAL IVPUSH SCH (10:52)
[2021-07-04] MEDS: METHIMAZOLE 5 MG TABLET GT SCH (11:15)
[2021-07-04] MEDS ORDERED: DEXMEDETOMIDINE IN 0.9 % NACL 400 MCG/100 ML VIAL IVPB SCH (11:15)
[2021-07-04] MEDS: INSULIN SLIDING SCALE (NOVOLOG) 1 VIAL SQ SCH ×2 (11:22→16:06)
[2021-07-04 12:33] LABS: ANISOCYTOSIS 1+; MACROCYTOSIS 1+; PLATELET ESTIMATE NORMAL
[2021-07-04] MEDS ORDERED: PROPOFOL 1,000,000 MCG/100 ML VIAL IVPB SCH (13:00)
[2021-07-04] MEDS: LACTATED RINGERS SOLUTION 1,000 ML/1,000 ML INFUS.BAG IV SCH (15:08)
[2021-07-04] MEDS: ATORVASTATIN CA 20 MG TABLET (FP) GT SCH (21:28)
[2021-07-04] MEDS: CHLORHEXIDINE GLUCONATE 4% CLEANSER FOR DECOLONIZATION TP SCH (21:28)
[2021-07-04] MEDS: VANCOMYCIN 1 GRAM (PRE-DOCKED) 1,000 MG/250 ML BAG IVPB SCH (23:59)
[2021-07-05 00:49] LABS: CALCIUM 7.4 mg/dL (8.5-10.1)
[2021-07-05 00:51] LABS: BLOOD UREA NITROGEN 62.1 mg/dL (7-18)
[2021-07-05 00:53] LABS: CREATININE 1.5 mg/dL (0.55-1.3)
[2021-07-05] MEDS ORDERED: PIPERACILLIN/TAZOBACTAM 3.375 GM VIAL IVPB ONE ×4 (01:16→21:04)
[2021-07-05] MEDS ORDERED: DEXTROSE 5%-WATER - 50 ML IVPB ONE ×4 (01:17→21:04)
[2021-07-05] MEDS: PIPERACILLIN/TAZOB 3.375 GM 3.375 GM in DEXTROSE 5%-WATER - 50 ML IVPB SCH ×4 (02:10→21:30)
[2021-07-05] MEDS: INSULIN SLIDING SCALE (NOVOLOG) 1 VIAL SQ SCH ×3 (06:16→17:33)
[2021-07-05] MEDS: HEPARIN INFUSION - 25,000 UNITS/500 ML INFUS.BAG IVPB SCH ×2 (06:17→21:34)
[2021-07-05] MEDS: NOREPINEPHRINE BITARTRATE 16,000 MCG in DEXTROSE 5%-WATER - 484 ML IVPB SCH ×2 (06:17→21:30)
[2021-07-05] MEDS: ALBUTEROL SO4 2.5/IPRATROPIUM 0.5 INH SOL 3 ML VIAL.NEB. NEB SCH ×4 (07:55→20:56)
[2021-07-05] MEDS: KCL 10 MEQ IVPB 10 MEQ/100 ML INFUS.BAG IVPB SCH ×5 (07:55→11:30)
[2021-07-05 08:47] LABS: ALBUMIN 1.2 g/dl (3.4-5.0)
[2021-07-05 08:49] LABS: BILIRUBIN,DIRECT 0.2 mg/dL (0.0-0.2)
[2021-07-05 08:52] LABS: BILIRUBIN,TOTAL 0.3 mg/dL (0.2-1); TOT PROT 4.3 g/dl (6.4-8.2)
[2021-07-05] MEDS ORDERED: POTASSIUM CHLORIDE 20 MEQ PREMIX IVPB 100 ML IVPB SCH (09:00)
[2021-07-05] MEDS: PANTOPRAZOLE SODIUM 40 MG VIAL IVPUSH SCH (09:35)
[2021-07-05] MEDS: FOLIC ACID 1 MG TABLET (FP) GT SCH (09:36)
[2021-07-05] MEDS: MUPIROCIN 2% TOPICAL OINTMENT FOR DECOLONIZATION NS SCH ×2 (09:36→21:31)
[2021-07-05] MEDS: AMIODARONE HCL 200 MG TABLET GT SCH (09:36)
[2021-07-05] MEDS: METHIMAZOLE 5 MG TABLET GT SCH (09:36)
[2021-07-05] MEDS: LACTATED RINGERS SOLUTION 1,000 ML/1,000 ML INFUS.BAG IV SCH ×2 (09:37→14:15)
[2021-07-05] MEDS: LORazepam 2 MG/ML SDV VIAL IVPUSH PRN ×2 (11:06→21:34)
[2021-07-05] MEDS: CHLORHEXIDINE GLUCONATE 4% CLEANSER FOR DECOLONIZATION TP SCH (21:31)
[2021-07-05] MEDS: ATORVASTATIN CA 20 MG TABLET (FP) GT SCH (21:32)
[2021-07-05] MEDS: VANCOMYCIN 1 GRAM (PRE-DOCKED) 1,000 MG/250 ML BAG IVPB SCH (23:03)
[2021-07-06] MEDS ORDERED: PIPERACILLIN/TAZOBACTAM 3.375 GM VIAL IVPB ONE ×2 (01:12→09:21)
[2021-07-06] MEDS ORDERED: DEXTROSE 5%-WATER - 50 ML IVPB ONE ×2 (01:13→09:21)
[2021-07-06] MEDS: PIPERACILLIN/TAZOB 3.375 GM 3.375 GM in DEXTROSE 5%-WATER - 50 ML IVPB SCH ×2 (02:17→09:23)
[2021-07-06] MEDS: HEPARIN INFUSION - 25,000 UNITS/500 ML INFUS.BAG IVPB SCH (02:17)
[2021-07-06] MEDS: INSULIN SLIDING SCALE (NOVOLOG) 1 VIAL SQ SCH ×3 (06:05→17:08)
[2021-07-06] MEDS: LORazepam 2 MG/ML SDV VIAL IVPUSH PRN ×2 (08:07→16:54)
[2021-07-06 08:10] LABS: MCH 32.3 pg (25.7-33.7); MEAN CELL VOLUME 95.1 fl (80-96); MEAN PLT VOLUME 9.5 fl (7.5-11.1); PLATELET COUNT 106 10^3/uL (134-434); RDW 20.8 % (11.6-15.6); WHITE BLOOD COUNT 6.6 K/mm3 (4.0-10.0)
[2021-07-06 08:20] LABS: HEMOGLOBIN 6.5 GM/dL (10.7-15.3)
[2021-07-06] MEDS: ALBUTEROL SO4 2.5/IPRATROPIUM 0.5 INH SOL 3 ML VIAL.NEB. NEB SCH ×4 (08:23→20:29)
[2021-07-06 08:24] LABS: ANION GAP 16 MMOL/L (8-16); BLOOD UREA NITROGEN 68.6 mg/dL (7-18); CALCIUM 7.3 mg/dL (8.5-10.1); CHLORIDE 112 mmol/L (98-107); CO2 17 mmol/L (21-32); CREATININE 1.8 mg/dL (0.55-1.3); GLUCOSE,RANDOM 304 mg/dL (74-106); SODIUM 145 mmol/L (136-145)
[2021-07-06] MEDS ORDERED: MAGNESIUM SULFATE IN WATER 2 GM/50 ML IVPB IVPB ONE (08:30)
[2021-07-06] MEDS: POTASSIUM CHLORIDE 20 MEQ PREMIX IVPB 100 ML IVPB SCH ×3 (08:58→12:04)
[2021-07-06] MEDS: AMIODARONE HCL 200 MG TABLET GT SCH (09:24)
[2021-07-06] MEDS: MUPIROCIN 2% TOPICAL OINTMENT FOR DECOLONIZATION NS SCH ×2 (09:24→22:10)
[2021-07-06] MEDS: FOLIC ACID 1 MG TABLET (FP) GT SCH (09:24)
[2021-07-06] MEDS: PANTOPRAZOLE SODIUM 40 MG VIAL IVPUSH SCH (09:24)
[2021-07-06] MEDS: METHIMAZOLE 5 MG TABLET GT SCH (09:28)
[2021-07-06 09:43] LABS: MAGNESIUM 1.8 mg/dL (1.8-2.4)
[2021-07-06] MEDS: LACTATED RINGERS SOLUTION 1,000 ML/1,000 ML INFUS.BAG IV SCH (19:32)
[2021-07-06] MEDS: NOREPINEPHRINE BITARTRATE 16,000 MCG in DEXTROSE 5%-WATER - 484 ML IVPB SCH (22:10)
[2021-07-06] MEDS: CHLORHEXIDINE GLUCONATE 4% CLEANSER FOR DECOLONIZATION TP SCH (22:11)
[2021-07-06] MEDS: ATORVASTATIN CA 20 MG TABLET (FP) GT SCH (22:12)
[2021-07-07] MEDS: INSULIN SLIDING SCALE (NOVOLOG) 1 VIAL SQ SCH ×3 (06:53→17:19)
[2021-07-07 07:05] LABS: HEMATOCRIT 20.9 % (32.4-45.2); MCH 30.7 pg (25.7-33.7); MCHC 33.4 g/dl (32.0-36.0); MEAN PLT VOLUME 9.3 fl (7.5-11.1); PLATELET COUNT 91 10^3/uL (134-434); RBC 2.27 M/mm3 (3.60-5.2); RDW 20.6 % (11.6-15.6); WHITE BLOOD COUNT 5.8 K/mm3 (4.0-10.0)
[2021-07-07] MEDS: ALBUTEROL SO4 2.5/IPRATROPIUM 0.5 INH SOL 3 ML VIAL.NEB. NEB SCH ×4 (07:20→20:00)
[2021-07-07 08:57] LABS: CALCIUM 7.6 mg/dL (8.5-10.1)
[2021-07-07 08:58] LABS: ALBUMIN 1.2 g/dl (3.4-5.0); BLOOD UREA NITROGEN 78.3 mg/dL (7-18); MAGNESIUM 2.2 mg/dL (1.8-2.4)
[2021-07-07 09:05] LABS: PHOSPHOROUS 5.7 mg/dL (2.5-4.9)
[2021-07-07 09:06] LABS: CREATININE 1.8 mg/dL (0.55-1.3)
[2021-07-07 09:07] LABS: BILIRUBIN,TOTAL 0.5 mg/dL (0.2-1); TOT PROT 3.9 g/dl (6.4-8.2)
[2021-07-07] MEDS ORDERED: CEFEPIME HCL 1 GM VIAL (RESTRICTED TO ID) ONE ×2 (10:24→21:46)
[2021-07-07] MEDS ORDERED: DEXTROSE 5%-WATER 100 ML IVPB ONE ×2 (10:24→21:46)
[2021-07-07] MEDS: KCL 10 MEQ IVPB 10 MEQ/100 ML INFUS.BAG IVPB SCH ×2 (10:27→10:55)
[2021-07-07] MEDS: FOLIC ACID 1 MG TABLET (FP) GT SCH (10:33)
[2021-07-07] MEDS: MUPIROCIN 2% TOPICAL OINTMENT FOR DECOLONIZATION NS SCH (10:33)
[2021-07-07] MEDS: AMIODARONE HCL 200 MG TABLET GT SCH (10:33)
[2021-07-07] MEDS: CEFEPIME 1 GM in DEXTROSE 5%-WATER 1 GM/100 ML BAG IVPB SCH ×2 (10:33→21:47)
[2021-07-07] MEDS: PANTOPRAZOLE SODIUM 40 MG VIAL IVPUSH SCH (10:36)
[2021-07-07] MEDS: METHIMAZOLE 5 MG TABLET GT SCH (10:39)
[2021-07-07] MEDS ORDERED: POTASSIUM CHLORIDE ORAL LIQUID 20 MEQ/15 ML NGT ONE (16:09)
[2021-07-07] MEDS ORDERED: POTASSIUM CHLORIDE ORAL LIQUID 20 MEQ/15 ML GT ONE (16:09)
[2021-07-07] MEDS: LACTATED RINGERS SOLUTION 1,000 ML/1,000 ML INFUS.BAG IV SCH (19:04)
[2021-07-07] MEDS: ENOXAPARIN NA (PORCINE) 30 MG/0.3 ML DISP.SYRIN SQ SCH (21:47)
[2021-07-07] MEDS: ATORVASTATIN CA 20 MG TABLET (FP) GT SCH (21:47)
[2021-07-08] MEDS: INSULIN SLIDING SCALE (NOVOLOG) 1 VIAL SQ SCH ×3 (06:00→16:15)
[2021-07-08] MEDS ORDERED: INSULIN (LEVEMIR) 100 UNITS/ML UNITS SQ SCH (07:00)
[2021-07-08] MEDS ORDERED: LACTATED RINGERS SOLUTION 1,000 ML/1,000 ML INFUS.BAG IV SCH (07:50)
[2021-07-08] MEDS: ALBUTEROL SO4 2.5/IPRATROPIUM 0.5 INH SOL 3 ML VIAL.NEB. NEB SCH ×4 (08:55→19:50)
[2021-07-08 10:19] LABS: HEMATOCRIT 22.5 % (32.4-45.2); HEMOGLOBIN 7.5 GM/dL (10.7-15.3); MCH 30.5 pg (25.7-33.7); MCHC 33.1 g/dl (32.0-36.0); MEAN CELL VOLUME 92.2 fl (80-96); MEAN PLT VOLUME 8.9 fl (7.5-11.1); PLATELET COUNT 100 10^3/uL (134-434); RBC 2.44 M/mm3 (3.60-5.2); RDW 21.1 % (11.6-15.6); WHITE BLOOD COUNT 5.6 K/mm3 (4.0-10.0)
[2021-07-08 10:40] LABS: CALCIUM 7.8 mg/dL (8.5-10.1)
[2021-07-08 10:41] LABS: BLOOD UREA NITROGEN 75.9 mg/dL (7-18)
[2021-07-08 10:44] LABS: CREATININE 1.9 mg/dL (0.55-1.3)
[2021-07-08] MEDS: PIPERACILLIN/TAZOB 3.375 GM 3.375 GM in DEXTROSE 5%-WATER - 50 ML IVPB SCH (10:44)
[2021-07-08] MEDS ORDERED: CEFEPIME HCL 1 GM VIAL (RESTRICTED TO ID) ONE ×2 (11:14→21:12)
[2021-07-08] MEDS ORDERED: DEXTROSE 5%-WATER 100 ML IVPB ONE ×2 (11:14→21:12)
[2021-07-08] MEDS: CEFEPIME 1 GM in DEXTROSE 5%-WATER 1 GM/100 ML BAG IVPB SCH ×2 (11:16→21:13)
[2021-07-08] MEDS: ENOXAPARIN NA (PORCINE) 40 MG/0.4 ML DISP.SYRIN SQ SCH (11:24)
[2021-07-08] MEDS: METHIMAZOLE 5 MG TABLET GT SCH (11:25)
[2021-07-08] MEDS: PANTOPRAZOLE SODIUM 40 MG VIAL IVPUSH SCH (11:25)
[2021-07-08] MEDS: AMIODARONE HCL 200 MG TABLET GT SCH (11:26)
[2021-07-08] MEDS: FOLIC ACID 1 MG TABLET (FP) GT SCH (11:26)
[2021-07-08] MEDS: ENOXAPARIN NA (PORCINE) 30 MG/0.3 ML DISP.SYRIN SQ SCH (11:40)
[2021-07-08] MEDS: D5-1/2NS+30 MEQ KCL - 30 MEQ/1,000 ML INFUS.BAG IV SCH (13:28)
[2021-07-08] MEDS: METOCLOPRAMIDE HCL INJECTION 10 MG/2 ML VIAL IVPUSH SCH ×2 (16:16→21:13)
[2021-07-08] MEDS: POLYETHYLENE GLYCOL (HEALTHYLAX) 3350 17 GM PACKET GT SCH (21:09)
[2021-07-08] MEDS: ATORVASTATIN CA 20 MG TABLET (FP) GT SCH (21:13)
[2021-07-09] MEDS: METOCLOPRAMIDE HCL INJECTION 10 MG/2 ML VIAL IVPUSH SCH ×4 (03:15→22:11)
[2021-07-09] MEDS: INSULIN (LEVEMIR) 100 UNITS/ML UNITS SQ SCH (06:00)
[2021-07-09] MEDS: INSULIN SLIDING SCALE (NOVOLOG) 1 VIAL SQ SCH ×4 (06:01→16:51)
[2021-07-09] MEDS: ALBUTEROL SO4 2.5/IPRATROPIUM 0.5 INH SOL 3 ML VIAL.NEB. NEB SCH ×4 (08:23→19:31)
[2021-07-09 10:04] LABS: HEMATOCRIT 21.3 % (32.4-45.2); HEMOGLOBIN 7.2 GM/dL (10.7-15.3); MCH 31.5 pg (25.7-33.7); MCHC 33.9 g/dl (32.0-36.0); MEAN CELL VOLUME 92.9 fl (80-96); MEAN PLT VOLUME 8.9 fl (7.5-11.1); PLATELET COUNT 100 10^3/uL (134-434); RBC 2.29 M/mm3 (3.60-5.2); RDW 20.7 % (11.6-15.6)
[2021-07-09] MEDS ORDERED: CEFEPIME HCL 1 GM VIAL (RESTRICTED TO ID) ONE ×2 (10:34→21:38)
[2021-07-09] MEDS ORDERED: DEXTROSE 5%-WATER 100 ML IVPB ONE ×2 (10:34→21:38)
[2021-07-09] MEDS: PANTOPRAZOLE SODIUM 40 MG VIAL IVPUSH SCH (10:40)
[2021-07-09] MEDS: CEFEPIME 1 GM in DEXTROSE 5%-WATER 1 GM/100 ML BAG IVPB SCH ×2 (10:41→22:12)
[2021-07-09] MEDS: ENOXAPARIN NA (PORCINE) 40 MG/0.4 ML DISP.SYRIN SQ SCH (10:41)
[2021-07-09] MEDS: LACTOBACILLUS ACIDOPHILUS 1 TABLET GT SCH (10:42)
[2021-07-09] MEDS: AMIODARONE HCL 200 MG TABLET GT SCH (10:42)
[2021-07-09] MEDS: FOLIC ACID 1 MG TABLET (FP) GT SCH (10:42)
[2021-07-09] MEDS: POLYETHYLENE GLYCOL (HEALTHYLAX) 3350 17 GM PACKET GT SCH ×2 (10:42→22:12)
[2021-07-09] MEDS: METHIMAZOLE 5 MG TABLET GT SCH (10:45)
[2021-07-09 11:09] LABS: CALCIUM 7.6 mg/dL (8.5-10.1)
[2021-07-09 11:10] LABS: BLOOD UREA NITROGEN 72.4 mg/dL (7-18)
[2021-07-09 11:13] LABS: CREATININE 1.8 mg/dL (0.55-1.3)
[2021-07-09] MEDS: D5-1/2NS+30 MEQ KCL - 30 MEQ/1,000 ML INFUS.BAG IV SCH (13:22)
[2021-07-09] MEDS ORDERED: POTASSIUM CHLORIDE ORAL LIQUID 20 MEQ/15 ML PO ONE (18:41)
[2021-07-09] MEDS: ATORVASTATIN CA 20 MG TABLET (FP) GT SCH (22:11)
[2021-07-10] MEDS: METOCLOPRAMIDE HCL INJECTION 10 MG/2 ML VIAL IVPUSH SCH (03:10)
[2021-07-10] MEDS: INSULIN SLIDING SCALE (NOVOLOG) 1 VIAL SQ SCH ×3 (06:28→16:37)
[2021-07-10] MEDS: INSULIN (LEVEMIR) 100 UNITS/ML UNITS SQ SCH (06:29)
[2021-07-10] MEDS: ALBUTEROL SO4 2.5/IPRATROPIUM 0.5 INH SOL 3 ML VIAL.NEB. NEB SCH ×4 (07:50→20:10)
[2021-07-10] MEDS ORDERED: CEFEPIME HCL 1 GM VIAL (RESTRICTED TO ID) ONE (10:28)
[2021-07-10] MEDS ORDERED: DEXTROSE 5%-WATER 100 ML IVPB ONE (10:28)
[2021-07-10] MEDS: CEFEPIME 1 GM in DEXTROSE 5%-WATER 1 GM/100 ML BAG IVPB SCH (10:32)
[2021-07-10] MEDS: PANTOPRAZOLE SODIUM 40 MG VIAL IVPUSH SCH (10:32)
[2021-07-10] MEDS: POLYETHYLENE GLYCOL (HEALTHYLAX) 3350 17 GM PACKET GT SCH ×2 (10:33→21:38)
[2021-07-10] MEDS: METHIMAZOLE 5 MG TABLET GT SCH (10:34)
[2021-07-10] MEDS: LACTOBACILLUS ACIDOPHILUS 1 TABLET GT SCH (10:34)
[2021-07-10] MEDS: AMIODARONE HCL 200 MG TABLET GT SCH (10:34)
[2021-07-10] MEDS: ENOXAPARIN NA (PORCINE) 40 MG/0.4 ML DISP.SYRIN SQ SCH (10:34)
[2021-07-10] MEDS: FOLIC ACID 1 MG TABLET (FP) GT SCH (10:34)
[2021-07-10 13:14] LABS: HEMOGLOBIN 7.3 GM/dL (10.7-15.3); MCH 31.4 pg (25.7-33.7); MCHC 33.2 g/dl (32.0-36.0); MEAN CELL VOLUME 94.7 fl (80-96); MEAN PLT VOLUME 9.9 fl (7.5-11.1); PLATELET COUNT 114 10^3/uL (134-434); RBC 2.32 M/mm3 (3.60-5.2); RDW 20.8 % (11.6-15.6)
[2021-07-10 13:28] LABS: CHLORIDE 120 mmol/L (98-107); SODIUM 149 mmol/L (136-145)
[2021-07-10 13:30] LABS: GLUCOSE,RANDOM 251 mg/dL (74-106)
[2021-07-10 13:31] LABS: ALBUMIN 1.2 g/dl (3.4-5.0); BLOOD UREA NITROGEN 70.3 mg/dL (7-18); CALCIUM 7.6 mg/dL (8.5-10.1); CO2 19 mmol/L (21-32)
[2021-07-10 13:34] LABS: SGPT/ALT 27 U/L (13-61)
[2021-07-10 13:35] LABS: CREATININE 1.8 mg/dL (0.55-1.3); SGOT/AST 29 U/L (15-37)
[2021-07-10 13:36] LABS: BILIRUBIN,TOTAL 0.3 mg/dL (0.2-1); TOT PROT 4.5 g/dl (6.4-8.2)
[2021-07-10 13:37] LABS: ALK PHOS 62 U/L (45-117)
[2021-07-10 13:43] LABS: ANION GAP 10 MMOL/L (8-16)
[2021-07-10] MEDS ORDERED: POTASSIUM CHLORIDE ORAL LIQUID 20 MEQ/15 ML PO ONE (13:45)
[2021-07-10] MEDS ORDERED: KCL 10 MEQ IVPB 10 MEQ/100 ML INFUS.BAG IVPB SCH (14:30)
[2021-07-10] MEDS: KCL 10 MEQ IVPB 10 MEQ/100 ML INFUS.BAG IVPB SCH ×3 (14:37→17:44)
[2021-07-10 15:48] LABS: HEMATOCRIT 21.3 % (32.4-45.2); MCH 30.7 pg (25.7-33.7); MCHC 32.7 g/dl (32.0-36.0); MEAN CELL VOLUME 93.9 fl (80-96); MEAN PLT VOLUME 8.7 fl (7.5-11.1); PLATELET COUNT 111 10^3/uL (134-434); RBC 2.27 M/mm3 (3.60-5.2); RDW 20.6 % (11.6-15.6); WHITE BLOOD COUNT 5.5 K/mm3 (4.0-10.0)
[2021-07-10 16:05] LABS: CALCIUM 7.6 mg/dL (8.5-10.1)
[2021-07-10 16:06] LABS: ALBUMIN 1.2 g/dl (3.4-5.0); BLOOD UREA NITROGEN 69.9 mg/dL (7-18); MAGNESIUM 1.9 mg/dL (1.8-2.4)
[2021-07-10 16:09] LABS: CREATININE 1.8 mg/dL (0.55-1.3)
[2021-07-10 16:11] LABS: BILIRUBIN,TOTAL 0.3 mg/dL (0.2-1); TOT PROT 4.3 g/dl (6.4-8.2)
[2021-07-10 16:49] LABS: EPI CELLS 3 /uL (0-25.1); HYALINE CASTS 1 /uL (0-3.1); URINE APPEARANCE CLEAR; URINE BACTERIA 5 /uL (0-1359); URINE BILIRUBIN NEGATIVE (NEGATIVE); URINE COLOR YELLOW; URINE GLUCOSE (UA) NEGATIVE (NEGATIVE); URINE KETONE NEGATIVE (NEGATIVE); URINE LEUK ESTERASE NEGATIVE (NEGATIVE); URINE NITRITE NEGATIVE (NEGATIVE); URINE PROTEIN TRACE (NEGATIVE); URINE RBC 24 /uL (0-23.9); URINE UROBILINOGEN 0.2 mg/dL (0.2-1.0); URINE WBC 38 /uL (0-25.8)
[2021-07-10] MEDS: ATORVASTATIN CA 20 MG TABLET (FP) GT SCH (21:37)
[2021-07-10] MEDS: ACETAMINOPHEN 650 MG/20.3 ML ORAL SOLUTION (CUPS) GT PRN (22:26)
[2021-07-11] MEDS: INSULIN SLIDING SCALE (NOVOLOG) 1 VIAL SQ SCH ×3 (06:06→18:06)
[2021-07-11] MEDS: INSULIN (LEVEMIR) 100 UNITS/ML UNITS SQ SCH (06:07)
[2021-07-11] MEDS: ACETAMINOPHEN 650 MG/20.3 ML ORAL SOLUTION (CUPS) GT PRN ×2 (06:28→21:30)
[2021-07-11] MEDS: ALBUTEROL SO4 2.5/IPRATROPIUM 0.5 INH SOL 3 ML VIAL.NEB. NEB SCH ×4 (08:25→20:10)
[2021-07-11 10:08] LABS: HEMATOCRIT 20.3 % (32.4-45.2); MCH 31.6 pg (25.7-33.7); MCHC 33.7 g/dl (32.0-36.0); MEAN CELL VOLUME 93.9 fl (80-96); MEAN PLT VOLUME 9.2 fl (7.5-11.1); PLATELET COUNT 106 10^3/uL (134-434); RBC 2.17 M/mm3 (3.60-5.2); RDW 20.8 % (11.6-15.6); WHITE BLOOD COUNT 6.3 K/mm3 (4.0-10.0)
[2021-07-11] MEDS ORDERED: cefTRIAXone SODIUM 1 GM VIAL ONE (10:15)
[2021-07-11] MEDS ORDERED: DEXTROSE 5%-WATER - 50 ML IVPB ONE (10:15)
[2021-07-11 10:22] LABS: HEMOGLOBIN 6.9 GM/dL (10.7-15.3)
[2021-07-11 10:24] LABS: ALBUMIN 1.1 g/dl (3.4-5.0); BLOOD UREA NITROGEN 68.9 mg/dL (7-18); CALCIUM 7.3 mg/dL (8.5-10.1)
[2021-07-11] MEDS: CEFTRIAXONE 1 GM in DEXTROSE 5%-WATER - 50 ML IVPB SCH (10:24)
[2021-07-11] MEDS: LACTOBACILLUS ACIDOPHILUS 1 TABLET GT SCH (10:24)
[2021-07-11] MEDS: ENOXAPARIN NA (PORCINE) 40 MG/0.4 ML DISP.SYRIN SQ SCH (10:24)
[2021-07-11] MEDS: PANTOPRAZOLE SODIUM 40 MG VIAL IVPUSH SCH (10:24)
[2021-07-11] MEDS: FOLIC ACID 1 MG TABLET (FP) GT SCH (10:24)
[2021-07-11] MEDS: AMIODARONE HCL 200 MG TABLET GT SCH (10:24)
[2021-07-11] MEDS: POLYETHYLENE GLYCOL (HEALTHYLAX) 3350 17 GM PACKET GT SCH ×2 (10:24→21:30)
[2021-07-11] MEDS: METHIMAZOLE 5 MG TABLET GT SCH (10:24)
[2021-07-11 10:27] LABS: CREATININE 1.8 mg/dL (0.55-1.3); PHOSPHOROUS 3.9 mg/dL (2.5-4.9)
[2021-07-11 10:29] LABS: BILIRUBIN,TOTAL 0.2 mg/dL (0.2-1); TOT PROT 4.2 g/dl (6.4-8.2)
[2021-07-11] MEDS ORDERED: POTASSIUM CHLORIDE ORAL LIQUID 20 MEQ/15 ML PO ONE (15:54)
[2021-07-11] MEDS ORDERED: SPIRONOLACTONE 25 MG TABLET GT ONE (15:55)
[2021-07-11] MEDS: KCL 10 MEQ IVPB 10 MEQ/100 ML INFUS.BAG IVPB SCH ×3 (16:38→20:43)
[2021-07-11 17:07] VITALS: BMI 35.9
[2021-07-11] MEDS: ATORVASTATIN CA 20 MG TABLET (FP) GT SCH (21:30)
[2021-07-12] MEDS ORDERED: ACETAMINOPHEN 1000 MG/100 ML BAG IVPB ONE ×2 (02:00→23:58)
[2021-07-12] MEDS ORDERED: INSULIN (LEVEMIR) 100 UNITS/ML UNITS SQ ONE (05:28)
[2021-07-12] MEDS: INSULIN (LEVEMIR) 100 UNITS/ML UNITS SQ SCH (06:19)
[2021-07-12] MEDS: INSULIN SLIDING SCALE (NOVOLOG) 1 VIAL SQ SCH ×3 (06:20→19:16)
[2021-07-12] MEDS: ALBUTEROL SO4 2.5/IPRATROPIUM 0.5 INH SOL 3 ML VIAL.NEB. NEB SCH ×4 (08:05→20:34)
[2021-07-12] MEDS ORDERED: hydrALAZINE HCL 20 MG/ML VIAL IVPB PRN ×2 (08:39→12:21)
[2021-07-12] MEDS ORDERED: amLODIPine BESYLATE 10 MG TABLET (FP) GT ONE (08:45)
[2021-07-12] MEDS ORDERED: amLODIPine BESYLATE 10 MG TABLET (FP) PO ONE (08:45)
[2021-07-12 09:07] LABS: HEMATOCRIT 25.8 % (32.4-45.2); HEMOGLOBIN 8.7 GM/dL (10.7-15.3); MCHC 33.7 g/dl (32.0-36.0); PLATELET COUNT 117 10^3/uL (134-434); WHITE BLOOD COUNT 8.9 K/mm3 (4.0-10.0)
[2021-07-12] MEDS ORDERED: cefTRIAXone SODIUM 1 GM VIAL ONE (09:14)
[2021-07-12] MEDS ORDERED: DEXTROSE 5%-WATER - 50 ML IVPB ONE (09:14)
[2021-07-12 09:25] LABS: CALCIUM 7.6 mg/dL (8.5-10.1)
[2021-07-12 09:26] LABS: ALBUMIN 1.2 g/dl (3.4-5.0); BLOOD UREA NITROGEN 67.2 mg/dL (7-18); MAGNESIUM 1.7 mg/dL (1.8-2.4)
[2021-07-12 09:29] LABS: CREATININE 1.6 mg/dL (0.55-1.3)
[2021-07-12 09:30] LABS: BILIRUBIN,TOTAL 0.9 mg/dL (0.2-1); TOT PROT 4.5 g/dl (6.4-8.2)
[2021-07-12] MEDS: PANTOPRAZOLE SODIUM 40 MG VIAL IVPUSH SCH (09:41)
[2021-07-12] MEDS: CEFTRIAXONE 1 GM in DEXTROSE 5%-WATER - 50 ML IVPB SCH (09:41)
[2021-07-12] MEDS: FOLIC ACID 1 MG TABLET (FP) GT SCH (09:42)
[2021-07-12] MEDS: LACTOBACILLUS ACIDOPHILUS 1 TABLET GT SCH (09:42)
[2021-07-12] MEDS: AMIODARONE HCL 200 MG TABLET GT SCH (09:42)
[2021-07-12] MEDS: ENOXAPARIN NA (PORCINE) 40 MG/0.4 ML DISP.SYRIN SQ SCH (09:42)
[2021-07-12] MEDS: POLYETHYLENE GLYCOL (HEALTHYLAX) 3350 17 GM PACKET GT SCH ×2 (09:43→21:11)
[2021-07-12] MEDS ORDERED: SPIRONOLACTONE 25 MG TABLET PO ONE (10:10)
[2021-07-12 10:49] LABS: ANISOCYTOSIS 0; HELMET CELLS 0; HOWELL-JOLLY BODIES 0; MACROCYTOSIS 0; OVALOCYTE 0; ROULEAU 0; SICKELED CELLS 0; TARGET CELLS 0; TEAR DROP CELLS 0; TOXIC GRANULATION 0
[2021-07-12] MEDS ORDERED: POTASSIUM CHLORIDE ORAL LIQUID 20 MEQ/15 ML PO ONE (12:22)
[2021-07-12] MEDS ORDERED: MAGNESIUM SULF 50% (8.12 MEQ/2 ML-1 GM VIAL) IVPB ONE ×2 (12:22→18:15)
[2021-07-12] MEDS: METHIMAZOLE 5 MG TABLET GT SCH (16:28)
[2021-07-12] MEDS: KCL 10 MEQ IVPB 10 MEQ/100 ML INFUS.BAG IVPB SCH ×4 (18:10→21:11)
[2021-07-12] MEDS: ATORVASTATIN CA 20 MG TABLET (FP) GT SCH (21:10)
[2021-07-13] MEDS: INSULIN SLIDING SCALE (NOVOLOG) 1 VIAL SQ SCH ×3 (06:16→18:46)
[2021-07-13] MEDS: INSULIN (LEVEMIR) 100 UNITS/ML UNITS SQ SCH (06:16)
[2021-07-13] MEDS: ALBUTEROL SO4 2.5/IPRATROPIUM 0.5 INH SOL 3 ML VIAL.NEB. NEB SCH ×4 (08:00→20:16)
[2021-07-13 09:28] LABS: EPI CELLS 15 /uL (0-25.1); HYALINE CASTS 4 /uL (0-3.1); URINE APPEARANCE TURBID; URINE BACTERIA 94 /uL (0-1359); URINE BILIRUBIN NEGATIVE (NEGATIVE); URINE COLOR YELLOW; URINE GLUCOSE (UA) NEGATIVE (NEGATIVE); URINE KETONE NEGATIVE (NEGATIVE); URINE LEUK ESTERASE 2+ (NEGATIVE); URINE NITRITE NEGATIVE (NEGATIVE); URINE PROTEIN 1+ (NEGATIVE); URINE UROBILINOGEN 0.2 mg/dL (0.2-1.0); URINE WBC 1904 /uL (0-25.8)
[2021-07-13] MEDS ORDERED: cefTRIAXone SODIUM 1 GM VIAL ONE (10:04)
[2021-07-13] MEDS ORDERED: DEXTROSE 5%-WATER - 50 ML IVPB ONE (10:04)
[2021-07-13] MEDS: FOLIC ACID 1 MG TABLET (FP) GT SCH (10:06)
[2021-07-13] MEDS: LACTOBACILLUS ACIDOPHILUS 1 TABLET GT SCH (10:06)
[2021-07-13] MEDS: amLODIPine BESYLATE 10 MG TABLET (FP) PO SCH (10:06)
[2021-07-13] MEDS: CEFTRIAXONE 1 GM in DEXTROSE 5%-WATER - 50 ML IVPB SCH (10:06)
[2021-07-13] MEDS: AMIODARONE HCL 200 MG TABLET GT SCH (10:06)
[2021-07-13] MEDS: POLYETHYLENE GLYCOL (HEALTHYLAX) 3350 17 GM PACKET GT SCH ×2 (10:07→22:07)
[2021-07-13] MEDS: PANTOPRAZOLE SODIUM 40 MG VIAL IVPUSH SCH (10:07)
[2021-07-13] MEDS: METHIMAZOLE 5 MG TABLET GT SCH (10:07)
[2021-07-13] MEDS: ENOXAPARIN NA (PORCINE) 40 MG/0.4 ML DISP.SYRIN SQ SCH (10:07)
[2021-07-13 10:36] LABS: URINE RBC 2674 /uL (0-23.9)
[2021-07-13 10:37] LABS: YEAST MANY (NEGATIVE)
[2021-07-13] MEDS ORDERED: SPIRONOLACTONE 25 MG TABLET PO ONE (11:56)
[2021-07-13 15:34] LABS: HEMATOCRIT 28.3 % (32.4-45.2); HEMOGLOBIN 9.6 GM/dL (10.7-15.3); MCH 31.1 pg (25.7-33.7); MCHC 33.8 g/dl (32.0-36.0); PLATELET COUNT 130 10^3/uL (134-434); RBC 3.08 M/mm3 (3.60-5.2); RDW 20.6 % (11.6-15.6); WHITE BLOOD COUNT 9.2 K/mm3 (4.0-10.0)
[2021-07-13] MEDS ORDERED: ENOXAPARIN NA (PORCINE) 40 MG/0.4 ML DISP.SYRIN SQ SCH ×2 (15:45→22:00)
[2021-07-13 15:56] LABS: BLOOD UREA NITROGEN 67.2 mg/dL (7-18); CALCIUM 7.5 mg/dL (8.5-10.1)
[2021-07-13 15:57] LABS: ALBUMIN 1.2 g/dl (3.4-5.0); MAGNESIUM 1.5 mg/dL (1.8-2.4)
[2021-07-13 16:00] LABS: CREATININE 1.5 mg/dL (0.55-1.3)
[2021-07-13 16:01] LABS: BILIRUBIN,TOTAL 0.4 mg/dL (0.2-1); TOT PROT 4.8 g/dl (6.4-8.2)
[2021-07-13 16:16] LABS: ANISOCYTOSIS 0; HELMET CELLS 0; HOWELL-JOLLY BODIES 0; MACROCYTOSIS 0; OVALOCYTE 0; ROULEAU 0; SICKELED CELLS 0; TARGET CELLS 0; TEAR DROP CELLS 0; TOXIC GRANULATION 0
[2021-07-13] MEDS: ATORVASTATIN CA 20 MG TABLET (FP) GT SCH (23:02)
[2021-07-14] MEDS ORDERED: MAGNESIUM SULF 50% (8.12 MEQ/2 ML-1 GM VIAL) IVPB ONE (00:29)
[2021-07-14] MEDS ORDERED: MAGNESIUM SULFATE IN WATER 2 GM/50 ML IVPB IVPB ONE (01:00)
[2021-07-14] MEDS: INSULIN SLIDING SCALE (NOVOLOG) 1 VIAL SQ SCH ×3 (06:30→16:36)
[2021-07-14] MEDS: INSULIN (LEVEMIR) 100 UNITS/ML UNITS SQ SCH (06:30)
[2021-07-14] MEDS: ALBUTEROL SO4 2.5/IPRATROPIUM 0.5 INH SOL 3 ML VIAL.NEB. NEB SCH ×4 (08:04→19:41)
[2021-07-14] MEDS ORDERED: DEXTROSE 5%-WATER - 50 ML IVPB ONE (08:54)
[2021-07-14] MEDS ORDERED: cefTRIAXone SODIUM 1 GM VIAL ONE (08:54)
[2021-07-14] MEDS: ENOXAPARIN NA (PORCINE) 40 MG/0.4 ML DISP.SYRIN SQ SCH ×2 (09:31→22:19)
[2021-07-14] MEDS: FOLIC ACID 1 MG TABLET (FP) GT SCH (09:32)
[2021-07-14] MEDS: LACTOBACILLUS ACIDOPHILUS 1 TABLET GT SCH (09:32)
[2021-07-14] MEDS: AMIODARONE HCL 200 MG TABLET GT SCH (09:32)
[2021-07-14] MEDS: POLYETHYLENE GLYCOL (HEALTHYLAX) 3350 17 GM PACKET GT SCH ×2 (09:32→22:20)
[2021-07-14] MEDS: METHIMAZOLE 5 MG TABLET GT SCH (09:33)
[2021-07-14] MEDS: PANTOPRAZOLE SODIUM 40 MG VIAL IVPUSH SCH (09:33)
[2021-07-14] MEDS: amLODIPine BESYLATE 10 MG TABLET (FP) PO SCH ×2 (09:33→14:08)
[2021-07-14] MEDS: ACETAMINOPHEN 650 MG/20.3 ML ORAL SOLUTION (CUPS) GT PRN (09:34)
[2021-07-14 09:54] LABS: ALBUMIN 1.1 g/dl (3.4-5.0); BLOOD UREA NITROGEN 76.9 mg/dL (7-18); CALCIUM 7.4 mg/dL (8.5-10.1)
[2021-07-14] MEDS: CEFTRIAXONE 1 GM in DEXTROSE 5%-WATER - 50 ML IVPB SCH (09:54)
[2021-07-14 09:55] LABS: MAGNESIUM 1.8 mg/dL (1.8-2.4)
[2021-07-14 09:57] LABS: CREATININE 1.7 mg/dL (0.55-1.3)
[2021-07-14 09:59] LABS: BILIRUBIN,TOTAL 0.2 mg/dL (0.2-1); TOT PROT 4.5 g/dl (6.4-8.2)
[2021-07-14] MEDS ORDERED: FUROSEMIDE 40 MG/4 ML INJECTABLE VIAL IVPUSH ONE (10:15)
[2021-07-14] MEDS ORDERED: POTASSIUM CHLORIDE ORAL LIQUID 20 MEQ/15 ML PO ONE (10:30)
[2021-07-14] MEDS: MINERAL OIL/PET HY-PHL TOPICAL OINTMENT 454 GM JAR TP SCH (14:35)
[2021-07-14] MEDS: ATORVASTATIN CA 20 MG TABLET (FP) GT SCH (22:19)
[2021-07-15] MEDS: VANCOMYCIN 250 MG/5 ML ORAL SOLUTION GT SCH ×5 (00:35→23:58)
[2021-07-15] MEDS: INSULIN (LEVEMIR) 100 UNITS/ML UNITS SQ SCH (06:36)
[2021-07-15] MEDS: INSULIN SLIDING SCALE (NOVOLOG) 1 VIAL SQ SCH ×3 (06:39→17:06)
[2021-07-15] MEDS: ALBUTEROL SO4 2.5/IPRATROPIUM 0.5 INH SOL 3 ML VIAL.NEB. NEB SCH ×4 (07:45→20:46)
[2021-07-15] MEDS: AMIODARONE HCL 200 MG TABLET GT SCH (10:27)
[2021-07-15] MEDS: ENOXAPARIN NA (PORCINE) 40 MG/0.4 ML DISP.SYRIN SQ SCH ×2 (10:27→21:08)
[2021-07-15] MEDS: MINERAL OIL/PET HY-PHL TOPICAL OINTMENT 454 GM JAR TP SCH (10:27)
[2021-07-15] MEDS: LACTOBACILLUS ACIDOPHILUS 1 TABLET GT SCH (10:27)
[2021-07-15] MEDS: AMINO ACIDS/PROTEIN HYDROLYS 30 ML LIQUID.PKT GT SCH (10:27)
[2021-07-15] MEDS: FOLIC ACID 1 MG TABLET (FP) GT SCH (10:27)
[2021-07-15] MEDS: amLODIPine BESYLATE 10 MG TABLET (FP) PO SCH (10:28)
[2021-07-15] MEDS: ACETAMINOPHEN 650 MG/20.3 ML ORAL SOLUTION (CUPS) GT PRN (10:28)
[2021-07-15] MEDS: PANTOPRAZOLE SODIUM 40 MG VIAL IVPUSH SCH (10:28)
[2021-07-15] MEDS: POLYETHYLENE GLYCOL (HEALTHYLAX) 3350 17 GM PACKET GT SCH ×2 (10:29→21:11)
[2021-07-15] MEDS: METHIMAZOLE 5 MG TABLET GT SCH (10:29)
[2021-07-15] MEDS: ATORVASTATIN CA 20 MG TABLET (FP) GT SCH (21:09)
[2021-07-15] MEDS: CLOTRIMAZOLE 1% CREAM TP SCH (21:09)
[2021-07-16] MEDS: INSULIN (LEVEMIR) 100 UNITS/ML UNITS SQ SCH (06:16)
[2021-07-16] MEDS: VANCOMYCIN 250 MG/5 ML ORAL SOLUTION GT SCH ×3 (06:18→17:19)
[2021-07-16] MEDS: INSULIN SLIDING SCALE (NOVOLOG) 1 VIAL SQ SCH ×3 (06:18→17:19)
[2021-07-16] MEDS: ALBUTEROL SO4 2.5/IPRATROPIUM 0.5 INH SOL 3 ML VIAL.NEB. NEB SCH ×2 (07:30→11:22)
[2021-07-16 09:02] LABS: ALBUMIN 1.1 g/dl (3.4-5.0); CALCIUM 7.7 mg/dL (8.5-10.1)
[2021-07-16 09:05] LABS: CREATININE 2.1 mg/dL (0.55-1.3)
[2021-07-16 09:07] LABS: BILIRUBIN,TOTAL 0.2 mg/dL (0.2-1); TOT PROT 4.5 g/dl (6.4-8.2)
[2021-07-16 09:19] LABS: HEMATOCRIT 24.8 % (32.4-45.2); HEMOGLOBIN 8.4 GM/dL (10.7-15.3); MCH 31.1 pg (25.7-33.7); MCHC 33.9 g/dl (32.0-36.0); MEAN CELL VOLUME 91.6 fl (80-96); MEAN PLT VOLUME 9.9 fl (7.5-11.1); PLATELET COUNT 103 10^3/uL (134-434); RBC 2.71 M/mm3 (3.60-5.2); RDW 19.9 % (11.6-15.6); WHITE BLOOD COUNT 5.6 K/mm3 (4.0-10.0)
[2021-07-16] MEDS: FOLIC ACID 1 MG TABLET (FP) GT SCH (11:31)
[2021-07-16] MEDS: AMIODARONE HCL 200 MG TABLET GT SCH (11:31)
[2021-07-16] MEDS: AMINO ACIDS/PROTEIN HYDROLYS 30 ML LIQUID.PKT GT SCH (11:31)
[2021-07-16] MEDS: MINERAL OIL/PET HY-PHL TOPICAL OINTMENT 454 GM JAR TP SCH (11:31)
[2021-07-16] MEDS: amLODIPine BESYLATE 10 MG TABLET (FP) PO SCH (11:31)
[2021-07-16] MEDS: LACTOBACILLUS ACIDOPHILUS 1 TABLET GT SCH (11:31)
[2021-07-16] MEDS: POLYETHYLENE GLYCOL (HEALTHYLAX) 3350 17 GM PACKET GT SCH ×2 (11:32→22:35)
[2021-07-16] MEDS: ENOXAPARIN NA (PORCINE) 40 MG/0.4 ML DISP.SYRIN SQ SCH ×2 (11:32→22:35)
[2021-07-16] MEDS: METHIMAZOLE 5 MG TABLET GT SCH (14:18)
[2021-07-16] MEDS: CLOTRIMAZOLE 1% CREAM TP SCH ×2 (14:42→22:35)
[2021-07-16] MEDS: PANTOPRAZOLE SODIUM 40 MG VIAL IVPUSH SCH (15:15)
[2021-07-16] MEDS: ATORVASTATIN CA 20 MG TABLET (FP) GT SCH (22:35)
[2021-07-17] MEDS: VANCOMYCIN 250 MG/5 ML ORAL SOLUTION GT SCH ×5 (00:15→23:23)
[2021-07-17] MEDS: INSULIN (LEVEMIR) 100 UNITS/ML UNITS SQ SCH (06:09)
[2021-07-17] MEDS: INSULIN SLIDING SCALE (NOVOLOG) 1 VIAL SQ SCH ×3 (06:09→16:45)
[2021-07-17] MEDS: POLYETHYLENE GLYCOL (HEALTHYLAX) 3350 17 GM PACKET GT SCH ×2 (09:35→21:17)
[2021-07-17] MEDS: AMINO ACIDS/PROTEIN HYDROLYS 30 ML LIQUID.PKT GT SCH (09:42)
[2021-07-17] MEDS: FOLIC ACID 1 MG TABLET (FP) GT SCH (09:43)
[2021-07-17] MEDS: ENOXAPARIN NA (PORCINE) 40 MG/0.4 ML DISP.SYRIN SQ SCH ×2 (09:43→21:16)
[2021-07-17] MEDS: amLODIPine BESYLATE 10 MG TABLET (FP) PO SCH (09:43)
[2021-07-17] MEDS: LACTOBACILLUS ACIDOPHILUS 1 TABLET GT SCH (09:43)
[2021-07-17] MEDS: AMIODARONE HCL 200 MG TABLET GT SCH (09:43)
[2021-07-17] MEDS: CLOTRIMAZOLE 1% CREAM TP SCH ×2 (09:44→21:17)
[2021-07-17] MEDS: MINERAL OIL/PET HY-PHL TOPICAL OINTMENT 454 GM JAR TP SCH (09:44)
[2021-07-17] MEDS: PANTOPRAZOLE SODIUM 40 MG VIAL IVPUSH SCH (09:45)
[2021-07-17 09:56] LABS: CHLORIDE 109 mmol/L (98-107); SODIUM 137 mmol/L (136-145)
[2021-07-17 10:15] LABS: ANION GAP 14 MMOL/L (8-16); CO2 14 mmol/L (21-32); GLUCOSE,RANDOM 224 mg/dL (74-106)
[2021-07-17 10:18] LABS: CREATININE 2.2 mg/dL (0.55-1.3); SGOT/AST 23 U/L (15-37); SGPT/ALT 22 U/L (13-61)
[2021-07-17 10:20] LABS: BILIRUBIN,TOTAL 0.9 mg/dL (0.2-1); TOT PROT 4.4 g/dl (6.4-8.2)
[2021-07-17 10:21] LABS: ALK PHOS 75 U/L (45-117)
[2021-07-17 10:38] LABS: BLOOD UREA NITROGEN 110.9 mg/dL (7-18)
[2021-07-17] MEDS: SODIUM BICARBONATE 650 MG TABLET PO SCH ×2 (11:30→21:17)
[2021-07-17] MEDS: METHIMAZOLE 5 MG TABLET GT SCH (12:45)
[2021-07-17] MEDS: ATORVASTATIN CA 20 MG TABLET (FP) GT SCH (21:17)
[2021-07-18] MEDS: INSULIN (LEVEMIR) 100 UNITS/ML UNITS SQ SCH (06:05)
[2021-07-18] MEDS: INSULIN SLIDING SCALE (NOVOLOG) 1 VIAL SQ SCH ×3 (06:06→17:49)
[2021-07-18] MEDS: VANCOMYCIN 250 MG/5 ML ORAL SOLUTION GT SCH ×3 (06:08→17:50)
[2021-07-18] MEDS: LACTOBACILLUS ACIDOPHILUS 1 TABLET GT SCH (10:52)
[2021-07-18] MEDS: PANTOPRAZOLE SODIUM 40 MG VIAL IVPUSH SCH (10:52)
[2021-07-18] MEDS: AMINO ACIDS/PROTEIN HYDROLYS 30 ML LIQUID.PKT GT SCH (10:52)
[2021-07-18] MEDS: AMIODARONE HCL 200 MG TABLET GT SCH (10:52)
[2021-07-18] MEDS: SODIUM BICARBONATE 650 MG TABLET PO SCH ×2 (10:52→22:13)
[2021-07-18] MEDS: FOLIC ACID 1 MG TABLET (FP) GT SCH (10:52)
[2021-07-18] MEDS: amLODIPine BESYLATE 10 MG TABLET (FP) PO SCH (10:52)
[2021-07-18] MEDS: METHIMAZOLE 5 MG TABLET GT SCH (10:53)
[2021-07-18] MEDS: POLYETHYLENE GLYCOL (HEALTHYLAX) 3350 17 GM PACKET GT SCH ×2 (10:53→22:13)
[2021-07-18] MEDS: MINERAL OIL/PET HY-PHL TOPICAL OINTMENT 454 GM JAR TP SCH (10:54)
[2021-07-18] MEDS: CLOTRIMAZOLE 1% CREAM TP SCH ×2 (10:54→22:14)
[2021-07-18] MEDS: ENOXAPARIN NA (PORCINE) 40 MG/0.4 ML DISP.SYRIN SQ SCH (15:19)
[2021-07-18] MEDS: ATORVASTATIN CA 20 MG TABLET (FP) GT SCH (22:13)
[2021-07-19] MEDS: VANCOMYCIN 250 MG/5 ML ORAL SOLUTION GT SCH ×4 (01:01→18:13)
[2021-07-19] MEDS: INSULIN (LEVEMIR) 100 UNITS/ML UNITS SQ SCH (06:24)
[2021-07-19] MEDS: INSULIN SLIDING SCALE (NOVOLOG) 1 VIAL SQ SCH ×3 (06:25→16:24)
[2021-07-19 08:27] LABS: BASO % 0.1 % (0-2.0); EOS % 0.2 % (0-4.5); HEMATOCRIT 23.4 % (32.4-45.2); LYMPH % 7.7 % (8-40); MCH 30.8 pg (25.7-33.7); MCHC 34.1 g/dl (32.0-36.0); MEAN CELL VOLUME 90.2 fl (80-96); MEAN PLT VOLUME 9.6 fl (7.5-11.1); MONO % 8.6 % (3.8-10.2); NEUT % 83.4 % (42.8-82.8); PLATELET COUNT 125 10^3/uL (134-434); RDW 19.2 % (11.6-15.6); WHITE BLOOD COUNT 4.1 K/mm3 (4.0-10.0)
[2021-07-19] MEDS: AMINO ACIDS/PROTEIN HYDROLYS 30 ML LIQUID.PKT GT SCH (08:30)
[2021-07-19 08:34] LABS: CHLORIDE 104 mmol/L (98-107); SODIUM 132 mmol/L (136-145)
[2021-07-19 08:37] LABS: CALCIUM 7.7 mg/dL (8.5-10.1)
[2021-07-19 08:38] LABS: ALBUMIN 1.1 g/dl (3.4-5.0); ANION GAP 14 MMOL/L (8-16); CO2 14 mmol/L (21-32); GLUCOSE,RANDOM 288 mg/dL (74-106)
[2021-07-19 08:41] LABS: CREATININE 2.4 mg/dL (0.55-1.3); SGOT/AST 26 U/L (15-37); SGPT/ALT 28 U/L (13-61)
[2021-07-19 08:42] LABS: BILIRUBIN,TOTAL 0.6 mg/dL (0.2-1)
[2021-07-19 08:43] LABS: TOT PROT 4.5 g/dl (6.4-8.2)
[2021-07-19 08:44] LABS: ALK PHOS 82 U/L (45-117)
[2021-07-19 08:48] LABS: BLOOD UREA NITROGEN 132.2 mg/dL (7-18)
[2021-07-19] MEDS: METHIMAZOLE 5 MG TABLET GT SCH (09:06)
[2021-07-19] MEDS: PANTOPRAZOLE SODIUM 40 MG VIAL IVPUSH SCH (09:06)
[2021-07-19] MEDS: ENOXAPARIN NA (PORCINE) 40 MG/0.4 ML DISP.SYRIN SQ SCH (09:07)
[2021-07-19] MEDS: amLODIPine BESYLATE 10 MG TABLET (FP) PO SCH (09:08)
[2021-07-19] MEDS: LACTOBACILLUS ACIDOPHILUS 1 TABLET GT SCH (09:08)
[2021-07-19] MEDS: FOLIC ACID 1 MG TABLET (FP) GT SCH (09:08)
[2021-07-19] MEDS: AMIODARONE HCL 200 MG TABLET GT SCH (09:08)
[2021-07-19] MEDS: SODIUM BICARBONATE 650 MG TABLET PO SCH (09:08)
[2021-07-19] MEDS: MINERAL OIL/PET HY-PHL TOPICAL OINTMENT 454 GM JAR TP SCH (11:57)
[2021-07-19] MEDS: CLOTRIMAZOLE 1% CREAM TP SCH ×2 (12:16→21:40)
[2021-07-19] MEDS: SODIUM BICARBONATE 650 MG TABLET GT SCH (21:53)
[2021-07-19] MEDS: ATORVASTATIN CA 20 MG TABLET (FP) GT SCH (21:54)
[2021-07-20] MEDS: VANCOMYCIN 250 MG/5 ML ORAL SOLUTION GT SCH ×4 (00:02→17:24)
[2021-07-20] MEDS: SODIUM BICARBONATE 650 MG TABLET GT SCH ×3 (05:11→23:07)
[2021-07-20] MEDS: INSULIN SLIDING SCALE (NOVOLOG) 1 VIAL SQ SCH ×3 (06:02→17:24)
[2021-07-20] MEDS: INSULIN (LEVEMIR) 100 UNITS/ML UNITS SQ SCH (06:03)
[2021-07-20] MEDS ORDERED: METOPROLOL TARTRATE 5 MG/5 ML VIAL IVPUSH PRN (07:15)
[2021-07-20] MEDS ORDERED: FUROSEMIDE 40 MG/4 ML INJECTABLE VIAL IVPUSH ONE ×2 (07:23→14:00)
[2021-07-20] MEDS ORDERED: METOPROLOL TARTRATE 5 MG/5 ML VIAL IVPUSH ONE (07:45)
[2021-07-20 10:10] LABS: BASO % 0.2 % (0-2.0); EOS % 0.3 % (0-4.5); HEMOGLOBIN 8.2 GM/dL (10.7-15.3); LYMPH % 8.9 % (8-40); MCH 30.8 pg (25.7-33.7); MEAN CELL VOLUME 90.5 fl (80-96); MEAN PLT VOLUME 9.6 fl (7.5-11.1); MONO % 6.6 % (3.8-10.2); PLATELET COUNT 140 10^3/uL (134-434); RBC 2.66 M/mm3 (3.60-5.2); RDW 19.2 % (11.6-15.6); WHITE BLOOD COUNT 3.3 K/mm3 (4.0-10.0)
[2021-07-20] MEDS: ENOXAPARIN NA (PORCINE) 30 MG/0.3 ML DISP.SYRIN SQ SCH (10:10)
[2021-07-20] MEDS: LACTOBACILLUS ACIDOPHILUS 1 TABLET GT SCH (10:10)
[2021-07-20] MEDS: FOLIC ACID 1 MG TABLET (FP) GT SCH (10:11)
[2021-07-20] MEDS: AMIODARONE HCL 200 MG TABLET GT SCH (10:11)
[2021-07-20 10:20] LABS: SODIUM 135 mmol/L (136-145)
[2021-07-20] MEDS: PANTOPRAZOLE SODIUM 40 MG VIAL IVPUSH SCH (10:21)
[2021-07-20] MEDS: METHIMAZOLE 5 MG TABLET GT SCH (10:21)
[2021-07-20 10:22] LABS: CALCIUM 7.8 mg/dL (8.5-10.1)
[2021-07-20 10:23] LABS: CO2 13 mmol/L (21-32); GLUCOSE,RANDOM 325 mg/dL (74-106); MAGNESIUM 1.5 mg/dL (1.8-2.4)
[2021-07-20 10:26] LABS: CREATININE 2.1 mg/dL (0.55-1.3); PHOSPHOROUS 4.8 mg/dL (2.5-4.9); SGOT/AST 22 U/L (15-37); SGPT/ALT 31 U/L (13-61)
[2021-07-20 10:27] LABS: TOT PROT 4.5 g/dl (6.4-8.2)
[2021-07-20 10:28] LABS: BILIRUBIN,TOTAL 0.3 mg/dL (0.2-1)
[2021-07-20] MEDS: amLODIPine BESYLATE 10 MG TABLET (FP) PO SCH (10:28)
[2021-07-20 10:29] LABS: ALK PHOS 82 U/L (45-117)
[2021-07-20 11:01] LABS: ANION GAP 17 MMOL/L (8-16); BLOOD UREA NITROGEN 126.8 mg/dL (7-18); CHLORIDE 105 mmol/L (98-107)
[2021-07-20] MEDS: MINERAL OIL/PET HY-PHL TOPICAL OINTMENT 454 GM JAR TP SCH (12:11)
[2021-07-20] MEDS: CLOTRIMAZOLE 1% CREAM TP SCH ×2 (12:12→23:06)
[2021-07-20] MEDS: ATORVASTATIN CA 20 MG TABLET (FP) GT SCH (23:06)
[2021-07-21] MEDS: VANCOMYCIN 250 MG/5 ML ORAL SOLUTION GT SCH ×3 (00:05→11:53)
[2021-07-21] MEDS: SODIUM BICARBONATE 650 MG TABLET GT SCH ×2 (05:08→13:33)
[2021-07-21] MEDS: INSULIN SLIDING SCALE (NOVOLOG) 1 VIAL SQ SCH ×2 (06:03→11:53)
[2021-07-21] MEDS: INSULIN (LEVEMIR) 100 UNITS/ML UNITS SQ SCH (06:03)
[2021-07-21] MEDS: FOLIC ACID 1 MG TABLET (FP) GT SCH (10:41)
[2021-07-21] MEDS: LACTOBACILLUS ACIDOPHILUS 1 TABLET GT SCH (10:41)
[2021-07-21] MEDS: ENOXAPARIN NA (PORCINE) 30 MG/0.3 ML DISP.SYRIN SQ SCH (10:41)
[2021-07-21] MEDS: amLODIPine BESYLATE 10 MG TABLET (FP) PO SCH (10:41)
[2021-07-21] MEDS: MINERAL OIL/PET HY-PHL TOPICAL OINTMENT 454 GM JAR TP SCH (10:41)
[2021-07-21] MEDS: AMIODARONE HCL 200 MG TABLET GT SCH (10:41)
[2021-07-21] MEDS: METHIMAZOLE 5 MG TABLET GT SCH (10:42)
[2021-07-21] MEDS: CLOTRIMAZOLE 1% CREAM TP SCH (10:42)
[2021-07-21] MEDS: PANTOPRAZOLE SODIUM 40 MG VIAL IVPUSH SCH (10:42)
[2021-07-21] MEDS ORDERED: morphine SULFATE 4 MG/ML VIAL IVPUSH ONE (17:25)
[2021-07-21] MEDS: MORPHINE SULFATE/0.9% NACL/PF 100 MG/100 ML BAG IVPB SCH (17:51)
[2021-07-21] MEDS ORDERED: LORazepam 2 MG/ML SDV VIAL IVPUSH ONE (18:00)
[2021-07-22] MEDS ORDERED: LORazepam 2 MG/ML SDV VIAL IVPUSH ONE (08:25)
[2021-07-22] MEDS ORDERED: SCOPOLAMINE HYDROBROMIDE 1 PATCH PATCH.TD72 TD SCH (09:00)
[2021-07-22 22:19] VITALS: TEMP 100
[2021-07-22] MEDS: MORPHINE SULFATE/0.9% NACL/PF 100 MG/100 ML BAG IVPB SCH (22:23)
[2021-07-23] MEDS: LORazepam 2 MG/ML SDV VIAL IVPUSH PRN ×2 (12:27→17:27)
[2021-07-23] MEDS ORDERED: MORPHINE SULFATE/0.9% NACL/PF 100 MG/100 ML BAG IVPB SCH ×3 (14:56→21:03)
[2021-07-23] MEDS ORDERED: morphine SULFATE 4 MG/ML VIAL IVPUSH ONE ×3 (15:00→20:30)
[2021-07-23 15:41] VITALS: PULSE 92
[2021-07-23 18:21] VITALS: BP 68/24
[2021-07-23] MEDS ORDERED: LORazepam 2 MG/ML SDV VIAL IVPUSH ONE (21:04)
== END 2021-07-23 11:00 | disposition expired | DRG 870 ==
LOC: JER 19:10 → JERBED 19:15 → JICU 23:42 → J5S 07-07 18:10
PROVIDERS: ADMIT Internal Medicine Pulmonary Disease; ATTEND Family Medicine
PROC: 5A1955Z Respiratory Ventilation, Greater than 96 Consecutive Hours (ICD-10-PCS; principal; 2021-07-03)
PROC: 30233N1 Transfusion of Nonautologous Red Blood Cells into Peripheral Vein, Percutaneous Approach (ICD-10-PCS; 2021-07-06)
DX: A41.9 Sepsis, unspecified organism (principal); R65.21 Severe sepsis with septic shock; J18.9 Pneumonia, unspecified organism; N17.9 Acute kidney failure, unspecified; G93.1 Anoxic brain damage, not elsewhere classified; J96.10 Chronic respiratory failure, unspecified whether with hypoxia or hypercapnia; N39.0 Urinary tract infection, site not specified; E87.2 Acidosis; I24.8 Other forms of acute ischemic heart disease; J96.11 Chronic respiratory failure with hypoxia; J44.0 Chronic obstructive pulmonary disease with (acute) lower respiratory infection; Z99.11 Dependence on respirator [ventilator] status; I46.2 Cardiac arrest due to underlying cardiac condition; R57.0 Cardiogenic shock; I49.01 Ventricular fibrillation; I11.0 Hypertensive heart disease with heart failure; J44.9 Chronic obstructive pulmonary disease, unspecified; E03.9 Hypothyroidism, unspecified; E78.5 Hyperlipidemia, unspecified; I48.0 Paroxysmal atrial fibrillation; Z93.0 Tracheostomy status; R74.01 Elevation of levels of liver transaminase levels; E87.6 Hypokalemia; E83.42 Hypomagnesemia; D69.6 Thrombocytopenia, unspecified; E11.43 Type 2 diabetes mellitus with diabetic autonomic (poly)neuropathy; K21.9 Gastro-esophageal reflux disease without esophagitis; D64.9 Anemia, unspecified; C55 Malignant neoplasm of uterus, part unspecified
CPT/HCPCS: 36415; 36430; 36511; 36600; 70450-TC; 71045-TC-FY; 74018-TC-FY; 76705-TC; 76775-TC; 76937; 80048; 80053; 80076; 81003; 82272; 82436; 82542; 82550; 82553; 82570; 82607; 82728; 82746; 82803; 82962; 83010; 83540; 83550; 83605; 83615; 83735; 84100; 84133; 84300; 84439; 84443; 84466; 84484; 85025; 85027; 85045; 85610; 85730; 86022; 86850; 86900; 86901; 86922; 87040; 87070; 87086; 87186; 87205; 87324; 87449; 93005; 93010; 93306-TC; 93971; 94002; 94640; 95816; 99291; C9803-CS; G0480; J1644; P9038; P9058; U0003; U0005